=== PATIENT | female | born 1940 | race Caucasian/White ===

== ENCOUNTER → 2016-03-13 | Outpatient (CLI) | payer MEDICARE | LOC: YCHH 09:56 | PROVIDERS: ATTEND Family Medicine | DX: D52.9 Folate deficiency anemia, unspecified (principal); I50.9 Heart failure, unspecified; D64.9 Anemia, unspecified; E11.9 Type 2 diabetes mellitus without complications; E61.1 Iron deficiency; R79.89 Other specified abnormal findings of blood chemistry; M10.9 Gout, unspecified ==

== ENCOUNTER → 2016-09-12 | Outpatient (CLI) | payer MEDICARE | END | disposition home or self-care (01) | LOC: GMAM 17:14 | PROVIDERS: ATTEND Family Medicine | DX: R94.6 Abnormal results of thyroid function studies (principal) ==

== ENCOUNTER → 2016-09-16 | Outpatient (CLI) | payer MEDICARE ==
--- NOTE | 2016-09-16 15:06 | US ---
EXAM DESCRIPTION: Thyroid CLINICAL HISTORY: 75 years Female, ABNORMAL THYROID FINDINGS COMPARISON: None. FINDINGS: The thyroid is symmetric in appearance and in the upper range of normal for size with the right lobe measuring 5.2 x 1.6 x 2.3 cm and the left lobe measuring 5.2 x 1.5 x 1.8 cm. The isthmus is 4 mm in thickness. Multiple small nodules up to approximately 1 cm are present bilaterally. On the right, in the mid right lobe medially is a hypoechoic 9 x 9 x 8 mm solid nodule that is homogeneous. A septated almost completely six cystic lesion posteriorly in the mid right lobe measuring 10 x 7 x 8 mm is also present. A third complex predominantly solid hypoechoic 7 x 7 x 9 mm nodule in the mid right lobe is also identified. On the left, in the lower pole medially is a wider than tall hypoechoic slightly heterogeneous 8 x 7 x 4 mm nodule. A hypoechoic debris-filled cyst or solid nodule measuring 10 x 7 x 7 mm is also present in the lower pole left lobe of the thyroid. A small 6 mm hypoechoic nodule in the adjacent area of the lower pole is also present. Numerous tiny less than 5 mm nodules are noted elsewhere in the left lobe. IMPRESSION: Multinodular thyroid gland with centimeter and subcentimeter mixed solid and cystic nodules multiple in each lobe. One year follow-up examination to reconfirm stability is recommended. Electronically signed by: Adrien Zheng MD 09/16/2016 3:04 PM CDT
== END | disposition home or self-care (01) ==
LOC: US 09:19
PROVIDERS: ATTEND Family Medicine
DX: R94.6 Abnormal results of thyroid function studies (principal)

== ENCOUNTER 2016-12-16 08:57 | Emergency (ER) | payer MEDICARE ==
[2016-12-16] MEDS ORDERED: NITROGLYCERIN 0.4 MG 25 EA TAB SL ONE (09:06)
[2016-12-16] MEDS: NITROGLYCERIN 0.4 MG 25 EA TAB SL ONE ×2 (09:08→09:13)
[2016-12-16] MEDS ORDERED: LIDOCAINE VIS-MYLANTA 30 ML UD PO ONE (09:18)
[2016-12-16] MEDS ORDERED: MORPHINE SULFATE INJ 10 MG/ML VIAL IV ONE (09:18)
--- NOTE | 2016-12-16 09:33 | RAD ---
EXAM DESCRIPTION: Chest,1 View CLINICAL HISTORY: 4 hours chest pain COMPARISON: December 22, 2015 IMPRESSION: Single AP portable upright view of the chest shows enlargement of the cardiac silhouette without pulmonary vascular congestion. There is some enlargement of the central main pulmonary arteries that could indicate chronic pulmonary artery hypertension. Mild calcifications of the thoracic aortic arch are again seen. Lungs are normally aerated and clear. No obvious pleural effusion or pneumothorax is seen. Electronically signed by: Román Bueno MD 12/16/2016 9:32 AM OB/GYN DOCTOR
[2016-12-16 09:45] VITALS: O2SAT 98
[2016-12-16] MEDS ORDERED: SODIUM CHLORIDE 0.9% 1000ML 500 ML IVS ONE (09:57)
[2016-12-16] MEDS ORDERED: SODIUM CHLORIDE 0.9% 500ML 500 ML ONE (10:38)
[2016-12-16] MEDS ORDERED: SODIUM CHLORIDE 0.9% 500ML 500 ML IVS PRN (10:39)
[2016-12-16] MEDS ORDERED: CLOPIDOGREL 75 MG TAB PO ONE (11:02)
[2016-12-16] MEDS ORDERED: NITROGLYCERIN 2% 1 GM UD TOP ONE (11:03)
[2016-12-16] MEDS ORDERED: HEPARIN SODIUM (PORCINE) 5,000 U/ML VIAL IV ONE (11:03)
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
[2016-12-16] MEDS ORDERED: HEPARIN PREMIX 500 ML ONE (11:47)
[2016-12-16] MEDS ORDERED: HEPARIN PREMIX 25,000 UNITS in PREMIX BAG 1 BAG IVS SCH (12:00)
[2016-12-16 12:27] VITALS: BP 176/59; TEMP 97.9
== END 2016-12-16 12:31 | disposition short-term general hospital (02) ==
LOC: ER 08:57
DX: I20.0 Unstable angina (principal); I11.0 Hypertensive heart disease with heart failure; I50.9 Heart failure, unspecified; J44.9 Chronic obstructive pulmonary disease, unspecified; I25.2 Old myocardial infarction; Z98.61 Coronary angioplasty status; Z87.891 Personal history of nicotine dependence; Z79.899 Other long term (current) drug therapy; Z79.02 Long term (current) use of antithrombotics/antiplatelets
CPT/HCPCS: 36415; 36600; 71010; 80053; 81001; 82550; 82553; 82803; 82805; 83735; 83880; 84443; 84484; 85025; 85379; 85610; 85730; 93005; J1644; J2270; J7040

== ENCOUNTER → 2016-12-30 | Outpatient (CLI) | payer MEDICARE | END | disposition home or self-care (01) | LOC: GMAM 15:31 | PROVIDERS: ATTEND Family Medicine | DX: M10.9 Gout, unspecified (principal) ==

== ENCOUNTER → 2017-01-22 | Outpatient (CLI) | payer MEDICARE | END | disposition home or self-care (01) | LOC: GMAM 15:45 | PROVIDERS: ATTEND Family Medicine | DX: D64.9 Anemia, unspecified (principal) ==

== ENCOUNTER → 2017-03-06 | Outpatient (CLI) | payer MEDICARE | LOC: GMAM 14:31 | PROVIDERS: ATTEND Family Medicine | DX: R79.9 Abnormal finding of blood chemistry, unspecified (principal) ==

== ENCOUNTER → 2017-04-11 | Outpatient (CLI) | payer MEDICARE | LOC: LAB.O 13:31 | PROVIDERS: ATTEND Internal Medicine Hematology & Oncology | DX: D64.9 Anemia, unspecified (principal) ==

== ENCOUNTER 2017-04-15 07:04 | Inpatient (IN) | payer MEDICARE ==
[2017-04-15] MEDS ORDERED: NITROGLYCERIN 0.4 MG 25 EA TAB SL ONE (07:18)
[2017-04-15] MEDS ORDERED: ONDANSETRON INJ 4 MG/2 ML VIAL IV ONE (07:18)
[2017-04-15] MEDS ORDERED: SODIUM CHLORIDE 0.9% (FLUSH) 10 ML SYG IV PRN ×2 (07:18→12:26)
[2017-04-15] MEDS ORDERED: ASPIRIN TABLET 325 MG TAB PO ONE (07:18)
[2017-04-15] MEDS ORDERED: IPRATROPIUM/ALBUTEROL 3 ML VIAL NEB ONE (07:23)
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
--- NOTE | 2017-04-15 08:16 | RAD ---
Study: Single Frontal View of the Chest. Indication:CP, SOB, TEMP 101.8, H/O COPD Comparison: #[id number]. Impression: Cardiomegaly. Mild patchy opacities throughout bilateral lungs, which may reflect pulmonary edema or pneumonia. Follow-up to resolution recommended. No pleural effusion or pneumothorax. No acute osseous abnormality. Electronically signed by: Federico Montero MD 04/15/2017 8:15 AM ADMINISTRATIVE CLERK
[2017-04-15] MEDS ORDERED: ACETAMINOPHEN 325 MG TAB PO ONE (09:21)
[2017-04-15] MEDS ORDERED: AZITHROMYCIN IV 500 MG in SODIUM CHLORIDE 0.9% 250ML 250 ML IVPB ONE (10:07)
[2017-04-15] MEDS ORDERED: cefTRIAXone SODIUM 1 GM in SODIUM CHL 0.9% 50ML MIN-BAG+ 50 ML IVPB ONE (10:07)
[2017-04-15] MEDS ORDERED: cefTRIAXone SODIUM 1 GM VIAL ONE (10:19)
[2017-04-15] MEDS ORDERED: SODIUM CHL 0.9% 50ML MIN-BAG+ 50 ML IVPB ONE (10:19)
--- NOTE | 2017-04-15 10:36 | HP ---
SUPERVISING PHYSICIAN: Adrien Cotton M.D. CHIEF COMPLAINT: Congestion with some chest discomfort. HISTORY OF PRESENT ILLNESS: This is a 76 year-old female patient who complains of shortness of breath yesterday that was worse than normal. This morning she woke up and she was congested. She had some mid sternal chest pain with coughing, nausea and gagging. She actually did not vomit but her abdomen was diffusely tender. She spoke with her son who brought her into the Emergency Room. In the Emergency Room, sodium was 139 with potassium 4.8, chloride 109, carbon dioxide 20, BUN 66, creatinine 2.14, glucose 150, magnesium 1.7. Cardiac enzymes were negative. EKG was within normal limits. WBCs were 11.5, hemoglobin 11.5, hematocrit 4.9, platelets 150, neutrophils 79.4. PT and PTT were within normal limits. Urinalysis was within normal limits. Chest x-ray per radiology interpretation showed mild patchy opacities throughout the bilateral lungs which reflect pulmonary edema or pneumonia. She was given azithromycin and Rocephin in the Emergency Room as well as some Zofran. I was called for hospital admission. PAST MEDICAL HISTORY: 1. Acute renal failure stage IV with a baseline creatinine of 1.6 to 1.8. 2. Coronary artery disease. 3. Carotid artery stenosis. 4. Congestive heart failure with a diastolic dysfunction and an ejection fraction of 70% as per echo in December 2016. 5. Chronic obstructive pulmonary disease. 6. Dementia. 7. Gastroesophageal reflux disease. 8. Gout. 9. Hypertension. 10. Hyperlipidemia. 11. Obstructive sleep apnea. PAST SURGICAL HISTORY: 1. Tonsillectomy. 2. Left total knee replacement times 3. OUTPATIENT MEDICATIONS: Per the EMR and awaiting verification. ALLERGIES: BETADINE, RADIOGRAPHIC DYES AND IODINE. SOCIAL HISTORY: She is . She has 9 children. She lives in [place]. She has a past history of cigarette smoking but quit at age 30. She drinks alcohol on a social basis. She denies any ETOH use. REVIEW OF SYSTEMS: Positive for fatigue and low-grade fever. Negative for weight changes. HEENT: Positive for nasal drainage. Negative for ear pain, sore throat or vision changes. RESPIRATORY: Positive for coughing and shortness of breath. Negative for wheezing. CARDIAC: Positive for some midsternal chest pain. Negative for tachycardia or palpitations. GASTROINTESTINAL: Positive for nausea and gagging. Negative for vomiting, constipation or diarrhea. SKIN: Negative for lesions or rashes. NEUROLOGIC: Negative for headaches, dizziness or seizures. GENITOURINARY: Negative for dysuria, hematuria or nocturia. PHYSICAL EXAMINATION: VITAL SIGNS: Temperature up to 101.2, it is now 98.8. Pulse rate 65, blood pressure was low at 109/56, it is now 145/55. Respiratory rate was as high as 28, it is now 20. Her O2 sat was as low as 81% and is now 93% on 2 liters nasal cannula. GENERAL: This is a 76 year-old female patient lying in her hospital bed. She is in no acute distress. HEENT: Normocephalic and atraumatic. Pupils are equal and reactive. Oropharynx is clear. Oral mucous membranes are moist. NECK: Supple without mass. There is no jugular venous distention. RESPIRATORY: Bilateral rhonchi throughout. No crackles or wheezing noted. CHEST: There is equal rise and fall of the chest with inspiration and expiration. CARDIOVASCULAR: Regular rate and rhythm. GASTROINTESTINAL: Abdomen is soft, nondistended, non-tender. Bowel sounds are positive. EXTREMITIES: No cyanosis, clubbing or edema. NEUROLOGIC: She is awake, alert and oriented times three. LABORATORY: Labs and films are as per the History of Present Illness. ASSESSMENT: 1. Sepsis due to bilateral pneumonia with a temperature of 101.2, respiratory rate of 28 and bilateral pneumonia noted on chest x-ray. 2. Acute on chronic renal failure with a baseline creatinine of 1.6 to 1.8. It is now 2.14. 3. Electrolyte imbalance including hypomagnesemia. 4. Gastroesophageal reflux disease. 5. Hypertension. 6. Mild chronic obstructive pulmonary disease. 7. Elevated blood sugar. 8. Coronary artery disease. 9. Dementia. 10. Congestive heart failure with diastolic dysfunction and an ejection fraction of 70% per echocardiogram in December of 2016. PLAN: We will admit the patient to the hospital. I started her on the pneumonia protocol which continues her azithromycin and Rocephin. We will continue with good pulmonary hygiene. I have given her magnesium and checked her hemoglobin A1c in the morning. I have also put her on Accu-Cheks with sliding scale insulin. I will hold off on any steroids for now as there is no wheezing noted. She has also got breathing treatments and pulmonary hygiene. I gave her 1 liter of fluids. I have started on a PPI for ulcer prophylaxis as well as Lovenox for DVT prophylaxis. Monitor cultures as they become available. We will continue to monitor the patient closely and follow as needed. Dr. Cotton is the collaborating physician available for consultation. #[id number] MTDHarley
[2017-04-15] MEDS ORDERED: AZITHROMYCIN IV 500 MG VIAL IVPB ONE (10:50)
[2017-04-15] MEDS ORDERED: SODIUM CHLORIDE 0.9% 250ML 250 ML ONE (10:51)
[2017-04-15] MEDS ORDERED: ENOXAPARIN SODIUM 40 MG/0.4 ML SYG SUBCU SCH (13:00)
[2017-04-15] MEDS ORDERED: PANTOPRAZOLE SODIUM IV 40 MG VIAL IV SCH (13:00)
[2017-04-15] MEDS: IV SET AND CAP CHANGE INJ INJ SCH (13:13)
[2017-04-15] MEDS: LEVALBUTEROL NEBS 1.25 MG/3 ML VIAL INH SCH ×2 (16:30→23:32)
[2017-04-15] MEDS ORDERED: SODIUM CHLORIDE 0.45% 1000ML 1,000 ML IVS ONE (17:14)
[2017-04-15] MEDS ORDERED: MAGNESIUM SULFATE PREMIX 2GM 2 GM in PREMIX BAG 1 BAG IVPB ONE (17:14)
[2017-04-15] MEDS ORDERED: DEXTROSE 50% 25 GM/50 ML SYG IV PRN (17:15)
[2017-04-15] MEDS ORDERED: GLUCAGON INJ 1 MG VIAL SUBCU PRN (17:15)
[2017-04-15] MEDS ORDERED: MAGNESIUM SULFATE PREMIX 2GM 50 ML IVPB ONE (17:24)
[2017-04-15] MEDS ORDERED: PANTOPRAZOLE SODIUM TAB 40 MG PO ONE (20:20)
[2017-04-15] MEDS: guaiFENesin ER TAB 600 MG TAB PO SCH (20:35)
[2017-04-15] MEDS: SODIUM CHLORIDE 0.9% (FLUSH) 10 ML SYG IV SCH (20:35)
[2017-04-15] MEDS: INSULIN LISPRO 100 UNITS/ML PEN SUBCU SCH (21:10)
[2017-04-16] MEDS: PANTOPRAZOLE SODIUM TAB 40 MG PO SCH (06:00)
[2017-04-16] MEDS: INSULIN LISPRO 100 UNITS/ML PEN SUBCU SCH ×4 (07:15→21:04)
--- NOTE | 2017-04-16 07:39 | RAD ---
EXAM DESCRIPTION: Chest,2 Views CLINICAL HISTORY: Pneumonia COMPARISON: April 15, 2017 TECHNIQUE: PA/lateral FINDINGS: The appearance of the chest is slightly worse than previously seen with slightly increased mild cardiomegaly and more prominent central vascular markings suggesting an element of volume overload and failure. Dense consolidation or large pleural effusions are not apparent. Peripheral mass is not evident. Significant pleural fluid in the costophrenic angles on the lateral view not evident. IMPRESSION: Slight deterioration of the chest with cardiomegaly and mild central vascular congestion. Electronically signed by: Adrien Zheng MD 04/16/2017 7:38 AM [facility]
[2017-04-16] MEDS ORDERED: SODIUM CHL 0.9% 50ML MIN-BAG+ 50 ML IVPB ONE (07:45)
[2017-04-16] MEDS ORDERED: cefTRIAXone SODIUM 1 GM VIAL ONE (07:46)
[2017-04-16] MEDS: ENOXAPARIN SODIUM 40 MG/0.4 ML SYG SUBCU SCH (08:09)
[2017-04-16] MEDS: guaiFENesin ER TAB 600 MG TAB PO SCH ×2 (08:09→21:02)
[2017-04-16] MEDS: cefTRIAXone SODIUM 1 GM in SODIUM CHL 0.9% 50ML MIN-BAG+ 50 ML IVPB SCH (08:11)
[2017-04-16] MEDS: SODIUM CHLORIDE 0.9% (FLUSH) 10 ML SYG IV SCH ×2 (08:13→21:02)
[2017-04-16] MEDS: LEVALBUTEROL NEBS 1.25 MG/3 ML VIAL INH SCH ×3 (08:50→23:35)
[2017-04-16] MEDS ORDERED: SODIUM CHLORIDE 0.9% 250ML 250 ML ONE (09:54)
[2017-04-16] MEDS ORDERED: AZITHROMYCIN IV 500 MG VIAL IVPB ONE (09:55)
[2017-04-16] MEDS: AZITHROMYCIN IV 500 MG in SODIUM CHLORIDE 0.9% 250ML 250 ML IVPB SCH (09:56)
[2017-04-16] MEDS ORDERED: FUROSEMIDE INJ 40 MG/4 ML VIAL IV ONE (15:00)
[2017-04-16] MEDS ORDERED: METOPROLOL SUCCINATE XL 50 MG TAB ONE (15:07)
[2017-04-16] MEDS: CLOPIDOGREL 75 MG TAB PO SCH (15:12)
[2017-04-16] MEDS: METOPROLOL SUCCINATE XL 50 MG TAB PO SCH (15:15)
[2017-04-16] MEDS: OLMESARTAN MEDOXOMIL 40 MG PO SCH (15:40)
[2017-04-16] MEDS: LEVALBUTEROL NEBS 1.25 MG/3 ML VIAL INH PRN (20:55)
[2017-04-16] MEDS: LUBIPROSTONE 24 MCG CAP PO SCH (21:01)
[2017-04-16] MEDS: DONEPEZIL HCL 5 MG TAB PO SCH (21:02)
[2017-04-16] MEDS: traMADol HCL 50 MG TAB PO SCH (21:03)
[2017-04-16] MEDS: ALLOPURINOL 300 MG TAB PO SCH (21:03)
--- NOTE | 2017-04-16 21:39 | PN ---
DATE: 04/16/17 SUPERVISING PHYSICIAN: Adrien Cotton M.D. SUBJECTIVE: The patient is lying in her hospital bed. She is very cold. Says she feels worse today than she did yesterday. Feels very weak. She complains of shortness of breath with exertion but denies any chest pain, nausea, vomiting or diarrhea. OBJECTIVE: VITAL SIGNS: T max 24 hours is 99.5, pulse rate 75, blood pressure 159/47, respiratory rate 20, O2 sat is 90% on 2 liters nasal cannula. RESPIRATORY: Scattered rhonchi throughout. Somewhat diminished at the bases. There is no expiratory wheezing or crackles noted. CARDIAC: Regular rate and rhythm. GASTROINTESTINAL: Abdomen is soft, nondistended, non-tender. Bowel sounds are positive. EXTREMITIES: No cyanosis, clubbing or edema. NEUROLOGIC: She is awake, alert and oriented times three. LABORATORY: WBCs have normalized to 7.2 with hemoglobin that has dropped 2 grams from 11.5 yesterday to 9.5 today. Hematocrit is 29, platelets 125. Blood sugars have run between 112 and 139. Sodium 139, potassium 5.0, chloride 112, carbon dioxide 21, BUN 71, creatinine 2.53. Hemoglobin A1c is 4.8. Preliminary blood cultures show no growth after 24 hours. RADIOLOGY: Chest x-ray shows slight deterioration of the chest with cardiomegaly and mild central vascular congestion. All other labs and films have been reviewed via the EMR. ASSESSMENT: 1. Sepsis due to bilateral pneumonia with a temperature of 101.2, respiratory rate of 28 and bilateral pneumonia noted on chest x-ray. 2. Acute on chronic renal failure with a baseline creatinine of 1.6 to 1.8. It has slightly worsened overnight. 3. Anemia with a drop in hemoglobin of 2 grams overnight. Her anemia may be due to chronic kidney disease. 4. Electrolyte imbalance. 5. Gastroesophageal reflux disease. 6. Hypertension. 7. Mild chronic obstructive pulmonary disease. 8. Coronary artery disease. 9. Dementia. 10. Congestive heart failure with diastolic dysfunction and an ejection fraction of 70% per echocardiogram in December of 2016. PLAN: We will continue present supportive care. Will repeat her labs in the morning, especially to recheck her H&H. I will also guaiac her stools. Her home medications have been restarted and I have given her an extra dose of Lasix today. I will also obtain an ambulation study in the next day or 2 once she becomes somewhat stronger as she may need some oxygen. She is to continue with her pulmonary hygiene. We will continue to monitor her closely and follow as needed. Dr. Cotton is the collaborating physician available for consultation. [facility][id number] [facility]
[2017-04-17] MEDS: PANTOPRAZOLE SODIUM TAB 40 MG PO SCH (06:36)
[2017-04-17] MEDS: INSULIN LISPRO 100 UNITS/ML PEN SUBCU SCH ×4 (07:02→21:09)
[2017-04-17] MEDS ORDERED: SODIUM CHL 0.9% 50ML MIN-BAG+ 50 ML IVPB ONE (07:21)
[2017-04-17] MEDS ORDERED: cefTRIAXone SODIUM 1 GM VIAL ONE (07:22)
[2017-04-17] MEDS: LEVALBUTEROL NEBS 1.25 MG/3 ML VIAL INH SCH ×3 (07:33→23:35)
[2017-04-17] MEDS: ENOXAPARIN SODIUM 40 MG/0.4 ML SYG SUBCU SCH (08:36)
[2017-04-17] MEDS: cefTRIAXone SODIUM 1 GM in SODIUM CHL 0.9% 50ML MIN-BAG+ 50 ML IVPB SCH (08:36)
[2017-04-17] MEDS: traMADol HCL 50 MG TAB PO SCH ×2 (08:37→20:34)
[2017-04-17] MEDS: SODIUM CHLORIDE 0.9% (FLUSH) 10 ML SYG IV SCH ×2 (08:37→20:34)
[2017-04-17] MEDS: CLOPIDOGREL 75 MG TAB PO SCH (08:38)
[2017-04-17] MEDS: METOPROLOL SUCCINATE XL 50 MG TAB PO SCH (08:38)
[2017-04-17] MEDS: amLODIPine BESYLATE 5 MG TAB PO SCH (08:38)
[2017-04-17] MEDS: LUBIPROSTONE 24 MCG CAP PO SCH ×2 (08:38→20:34)
[2017-04-17] MEDS: guaiFENesin ER TAB 600 MG TAB PO SCH ×2 (08:38→20:33)
[2017-04-17] MEDS: FUROSEMIDE 40 MG TAB PO SCH (08:38)
[2017-04-17] MEDS: CALCITRIOL 0.25 MCG CAP PO SCH (08:38)
[2017-04-17] MEDS: ATORVASTATIN 10 MG TAB PO SCH (08:38)
[2017-04-17] MEDS: OLMESARTAN MEDOXOMIL 40 MG PO SCH (08:39)
[2017-04-17] MEDS ORDERED: AZITHROMYCIN IV 500 MG VIAL IVPB ONE (09:49)
[2017-04-17] MEDS ORDERED: SODIUM CHLORIDE 0.9% 250ML 250 ML ONE (09:49)
[2017-04-17] MEDS: AZITHROMYCIN IV 500 MG in SODIUM CHLORIDE 0.9% 250ML 250 ML IVPB SCH (09:53)
[2017-04-17] MEDS ORDERED: cloNIDine HCL 0.1 MG TAB PO ONE (10:07)
[2017-04-17] MEDS ORDERED: cloNIDine HCL 0.1 MG TAB ONE (10:11)
--- NOTE | 2017-04-17 13:21 | RAD ---
EXAM DESCRIPTION: Chest,2 Views CLINICAL HISTORY: Shortness of breath, pneumonia COMPARISON: Chest radiograph dated April 16, 2017 FINDINGS: Frontal and lateral views of the chest. Calcific atherosclerosis of the aortic arch. Cardiac silhouette shows cardiomegaly with mild central pulmonary vascular congestion. Minimal opacities in the bilateral lung bases most likely represent atelectasis. Underlying infiltrate cannot be entirely excluded. No significant pleural effusion. No pneumothorax. IMPRESSION: 1. Cardiomegaly with mild central pulmonary vascular congestion. 2. Opacity in the bilateral lung bases, most likely representing subsegmental atelectasis. Underlying infiltrate cannot be excluded, although felt less likely. Please correlate clinically. Electronically signed by: Victor Manuel Perez MD 04/17/2017 1:20 PM [facility]
[2017-04-17] MEDS ORDERED: methylPREDNISolone SODIUM SUC 125 MG/2 ML VIAL IV ONE (13:38)
--- NOTE | 2017-04-17 14:32 | PN ---
SUPERVISING PHYSICIAN: Adrien Cotton MD DATE: 04/17/17 SUBJECTIVE: The patient is sitting up in her hospital bed. She has just had an extremely large bowel movement and feels very weak. She continues to have shortness of breath, but she is improved since yesterday. No complaints of chest pain, nausea, vomiting. OBJECTIVE: VITAL SIGNS: T-max 24 hours 99.9. Heart rate 82. Blood pressure earlier today was 210/41. She received one dose of clonidine 0.1 for 1 dose and it is now 183/60. Respiratory rate 20. O2 saturation 92% on 3 liters nasal cannula. RESPIRATORY: Bilateral rhonchi throughout with diminished air sounds at the bases. She does have some expiratory wheezing in the right upper lung field. CARDIAC: Regular rate and rhythm. GASTROINTESTINAL: Abdomen is soft, nondistended, nontender. NEUROLOGIC: Awake, alert and oriented times three. LABORATORY: Sodium 139, potassium 4.7, chloride 109, carbon dioxide 23, BUN 63 , creatinine 2.13. Blood sugars have been between 113 and 139. WBCs are normalized at 7.3 with hemoglobin 9.6 and hematocrit 29.3. Platelet count 132. Preliminary blood cultures show no growth after 48 hours. Chest x-ray shows cardiomegaly with mild central pulmonary vascular congestion, opacity in the bilateral lung bases most likely representing subsegmental atelectasis. Underlying infiltrate cannot be excluded although fare less likely. Please correlate clinically. All other labs and films have been reviewed via the EMR. ASSESSMENT: 1. Sepsis due to bilateral pneumonia with a temperature of 101.2, respiratory rate of 28 and bilateral pneumonia noted on chest x-ray on admission. 2. Acute on chronic renal failure with a baseline creatinine of 1.6 to 1.8. 3. Anemia with a drop in hemoglobin of 2 grams from admission. Her hemoglobin and hematocrit remained stable since yesterday. 4. Electrolyte imbalance, improved. 5. Gastroesophageal reflux disease. 6. Hypertension. 7. Mild chronic obstructive pulmonary disease. 8. Coronary artery disease. 9. Dementia. 10. Congestive heart failure with diastolic dysfunction and an ejection fraction of 70% per echocardiogram in December of 2016. PLAN: We will continue present supportive care. I will monitor her hemoglobin and hematocrit as well as her electrolytes in the morning. We will hold on an x -ray for now. Due to her wheezing and her poor response clinically, I am going to add some steroids and taper those down overnight. I have ordered an ambulation study to see if she needs to have oxygen at home. All of her home medications have been resumed so hopefully there will be no further problems with elevated blood pressure. We will continue to encourage good pulmonary hygiene. We will continue to monitor the patient closely and follow as needed. Dr. Cotton is the collaborating physician and available for consultation. [facility][id number] [facility]
[2017-04-17] MEDS: ALLOPURINOL 300 MG TAB PO SCH (20:33)
[2017-04-17] MEDS: DONEPEZIL HCL 5 MG TAB PO SCH (20:34)
[2017-04-17] MEDS: methylPREDNISolone SODIUM SUC 125 MG/2 ML VIAL IV SCH (22:17)
[2017-04-18] MEDS: PANTOPRAZOLE SODIUM TAB 40 MG PO SCH (06:01)
[2017-04-18] MEDS: methylPREDNISolone SODIUM SUC 125 MG/2 ML VIAL IV SCH (06:02)
[2017-04-18] MEDS ORDERED: SODIUM CHL 0.9% 50ML MIN-BAG+ 50 ML IVPB ONE (07:35)
[2017-04-18] MEDS ORDERED: cefTRIAXone SODIUM 1 GM VIAL ONE (07:37)
[2017-04-18] MEDS: INSULIN LISPRO 100 UNITS/ML PEN SUBCU SCH ×4 (07:40→21:00)
[2017-04-18] MEDS: LEVALBUTEROL NEBS 1.25 MG/3 ML VIAL INH SCH ×2 (08:40→16:45)
[2017-04-18] MEDS: OLMESARTAN MEDOXOMIL 40 MG PO SCH (08:46)
[2017-04-18] MEDS: CALCITRIOL 0.25 MCG CAP PO SCH (08:48)
[2017-04-18] MEDS: amLODIPine BESYLATE 5 MG TAB PO SCH (08:49)
[2017-04-18] MEDS: traMADol HCL 50 MG TAB PO SCH ×2 (08:49→20:38)
[2017-04-18] MEDS: FUROSEMIDE 40 MG TAB PO SCH (08:50)
[2017-04-18] MEDS: LUBIPROSTONE 24 MCG CAP PO SCH ×2 (08:50→20:39)
[2017-04-18] MEDS: guaiFENesin ER TAB 600 MG TAB PO SCH ×2 (08:51→20:39)
[2017-04-18] MEDS: AZITHROMYCIN 250 MG TAB PO SCH (08:51)
[2017-04-18] MEDS: CLOPIDOGREL 75 MG TAB PO SCH (08:51)
[2017-04-18] MEDS: METOPROLOL SUCCINATE XL 50 MG TAB PO SCH (08:51)
[2017-04-18] MEDS: ENOXAPARIN SODIUM 40 MG/0.4 ML SYG SUBCU SCH (08:52)
[2017-04-18] MEDS: cefTRIAXone SODIUM 1 GM in SODIUM CHL 0.9% 50ML MIN-BAG+ 50 ML IVPB SCH (08:52)
[2017-04-18] MEDS: SODIUM CHLORIDE 0.9% (FLUSH) 10 ML SYG IV SCH ×2 (08:53→20:38)
[2017-04-18] MEDS: ATORVASTATIN 10 MG TAB PO SCH (09:00)
--- NOTE | 2017-04-18 14:18 | PN ---
SUPERVISING PHYSICIAN: Adrien Cotton MD DATE: 04/18/17 SUBJECTIVE: The patient is lying in bed. She complains of some bilateral ear pain, but otherwise she feels much improved since yesterday. She had a very, very large bowel movement and would like to hold her Amitiza for now. She has no complaints of shortness of breath, nausea, vomiting, diarrhea. OBJECTIVE: VITAL SIGNS: Afebrile. Heart rate 83. Blood pressure 104/66. Respiratory rate 18. O2 saturation 96% on 3 liters nasal cannula. HEENT: There is a small amount of fluid behind the left tympanic membrane and her right tympanic membrane is pink but otherwise within normal limits. RESPIRATORY: A few scattered rhonchi in the apices, diminished at the bases. No wheezing noted. CARDIAC: Regular rate and rhythm. GASTROINTESTINAL: Abdomen is soft, nondistended, nontender. NEUROLOGIC: Awake, alert and oriented times three. LABORATORY: WBC 5.9, hemoglobin 9.4, hematocrit 28.1, platelet count 128. Blood sugar have run between 113 and 202. Sodium 135, potassium 5.3, chloride 108, carbon dioxide 19, BUN 71, creatinine 2.70. Calcium 9.7. All other labs and films have been reviewed via the EMR. ASSESSMENT: 1. Sepsis due to bilateral pneumonia with a temperature of 101.2, respiratory rate of 28 and bilateral pneumonia noted on chest x-ray on admission. 2. Acute on chronic renal failure with a baseline creatinine of 1.6 to 1.8. 3. Anemia with a drop in hemoglobin of 2 grams from admission. Her hemoglobin and hematocrit remained stable since for the last two days. 4. Electrolyte imbalance, mostly improved. She is slightly hyperkalemic today. 5. Gastroesophageal reflux disease. 6. Hypertension. 7. Mild chronic obstructive pulmonary disease. 8. Coronary artery disease. 9. Dementia. 10. Congestive heart failure with diastolic dysfunction and an ejection fraction of 70% per echocardiogram in December of 2016. PLAN: We will continue present supportive care. Her steroids have been tapered down to p.o. dosing. I will repeat her labs and chest x-ray in the morning. She will need a followup with Dr. Becerra due to her worsening renal function. She does have oxygen at home and she may even need a sleep study at some point. Otherwise, hopefully she can be discharged tomorrow. We will continue to monitor the patient closely and follow as needed. Dr. Cotton is the collaborating physician and available for consultation. #[id number] [facility]
[2017-04-18] MEDS: DONEPEZIL HCL 5 MG TAB PO SCH (20:38)
[2017-04-18] MEDS: ALLOPURINOL 300 MG TAB PO SCH (20:39)
[2017-04-18] MEDS: LEVALBUTEROL NEBS 1.25 MG/3 ML VIAL INH PRN (20:50)
[2017-04-19] MEDS: PANTOPRAZOLE SODIUM TAB 40 MG PO SCH (06:15)
--- NOTE | 2017-04-19 07:28 | RAD ---
Clinical History : pna , MAIN Exam : Portable AP view of the chest 04/19/2017 5:00 AM [employer] Comparisons : Portable AP view of the chest April 17, 2017 Findings : There is stable diffuse peribronchial thickening throughout the lungs bilaterally. There is patchy bibasilar airspace disease. The heart is stable in size. The mediastinal contours are normal in appearance. There are vascular calcifications along the aortic arch. The thoracic spine is age appropriate. The shoulders are unremarkable. Limited evaluation of the upper abdomen demonstrates no gross abnormalities. Impression: Stable peribronchial thickening with patchy bibasilar airspace disease. Electronically signed by: Prem Boston MD 04/19/2017 7:28 AM [employer]
[2017-04-19] MEDS: LEVALBUTEROL NEBS 1.25 MG/3 ML VIAL INH SCH ×3 (08:36→16:44)
[2017-04-19] MEDS ORDERED: SODIUM CHL 0.9% 50ML MIN-BAG+ 50 ML IVPB ONE (08:48)
[2017-04-19] MEDS ORDERED: cefTRIAXone SODIUM 1 GM VIAL ONE (08:50)
[2017-04-19] MEDS: INSULIN LISPRO 100 UNITS/ML PEN SUBCU SCH ×4 (09:15→21:15)
[2017-04-19] MEDS: LUBIPROSTONE 24 MCG CAP PO SCH ×2 (09:16→21:15)
[2017-04-19] MEDS: FUROSEMIDE 40 MG TAB PO SCH (09:17)
[2017-04-19] MEDS: ENOXAPARIN SODIUM 40 MG/0.4 ML SYG SUBCU SCH (09:17)
[2017-04-19] MEDS: ATORVASTATIN 10 MG TAB PO SCH (09:17)
[2017-04-19] MEDS: amLODIPine BESYLATE 5 MG TAB PO SCH (09:18)
[2017-04-19] MEDS: guaiFENesin ER TAB 600 MG TAB PO SCH ×2 (09:18→21:15)
[2017-04-19] MEDS: CALCITRIOL 0.25 MCG CAP PO SCH (09:19)
[2017-04-19] MEDS: CLOPIDOGREL 75 MG TAB PO SCH (09:19)
[2017-04-19] MEDS: OLMESARTAN MEDOXOMIL 40 MG PO SCH (09:19)
[2017-04-19] MEDS: cefTRIAXone SODIUM 1 GM in SODIUM CHL 0.9% 50ML MIN-BAG+ 50 ML IVPB SCH (09:20)
[2017-04-19] MEDS: METOPROLOL SUCCINATE XL 50 MG TAB PO SCH (09:21)
[2017-04-19] MEDS: SODIUM CHLORIDE 0.9% (FLUSH) 10 ML SYG IV SCH ×2 (09:21→21:15)
[2017-04-19] MEDS: traMADol HCL 50 MG TAB PO SCH ×2 (09:21→21:15)
[2017-04-19] MEDS: AZITHROMYCIN 250 MG TAB PO SCH (09:22)
[2017-04-19] MEDS: IV SET AND CAP CHANGE INJ INJ SCH (12:34)
--- NOTE | 2017-04-19 18:43 | PN ---
DATE: 04/19/17 SUBJECTIVE: The patient is sitting up in the bed and in many ways states she is feeling better than 2 days ago. Today is her fourth day in the hospital. She has been able to ambulate quite well. No dizziness or tendency to fall evident. Awaiting ambulation studies to determine the requirements for oxygen upon going home. She has completed a fourth day of parenteral antibiotic therapy by later tonight. OBJECTIVE: Afebrile, pulse 91, blood pressure 130/58, pulse oximetry 97% on 2 liters. LABORATORY: Hemoglobin has dropped to 9.1 from on admission at 11.5. Chemistry shows magnesium is 2.3, beta natriuretic peptide has gone up from 311 to 519, fasting glucose is 146. Blood cultures are negative. RADIOLOGY: Chest x-ray shows bibasilar airspace disease suggesting a pneumonia process. ASSESSMENT: 1. Bibasilar pneumonia with elevated temperature and septic symptoms noted on chest x-ray with cultures negative at this time treated with Rocephin and azithromycin parenterally. 2. Chronic renal failure with an acute exacerbation showing some improvement. 3. Chronic anemia persistent having required iron infusions in the past. 4. History of gastroesophageal reflux disease. 5. Hypertension. 6. Mild chronic obstructive pulmonary disease, stable. 7. Coronary artery disease. 8. History of mild dementia. 9. History of congestive heart failure with a diastolic dysfunction and an ejection fraction of 70% per echocardiogram of December of 2016. PLAN: Will continue with determining oxygen requirements before being able to go home. Await ambulation studies today. Continue treatment course with radiographic findings still persistent but showing some clinical improvement. Consider continued outpatient therapy in the morning as stable. #[id number] [facility]
[2017-04-19] MEDS: DONEPEZIL HCL 5 MG TAB PO SCH (21:15)
[2017-04-19] MEDS: ALLOPURINOL 300 MG TAB PO SCH (21:16)
[2017-04-20] MEDS: LEVALBUTEROL NEBS 1.25 MG/3 ML VIAL INH SCH ×3 (00:19→15:45)
[2017-04-20] MEDS: PANTOPRAZOLE SODIUM TAB 40 MG PO SCH (06:13)
[2017-04-20] MEDS: INSULIN LISPRO 100 UNITS/ML PEN SUBCU SCH ×3 (08:03→12:08)
[2017-04-20] MEDS ORDERED: SODIUM CHL 0.9% 50ML MIN-BAG+ 50 ML IVPB ONE (08:11)
[2017-04-20] MEDS ORDERED: cefTRIAXone SODIUM 1 GM VIAL ONE (08:13)
[2017-04-20] MEDS: METOPROLOL SUCCINATE XL 50 MG TAB PO SCH (08:39)
[2017-04-20] MEDS: CALCITRIOL 0.25 MCG CAP PO SCH (08:39)
[2017-04-20] MEDS: CLOPIDOGREL 75 MG TAB PO SCH (08:40)
[2017-04-20] MEDS: traMADol HCL 50 MG TAB PO SCH (08:40)
[2017-04-20] MEDS: ATORVASTATIN 10 MG TAB PO SCH (08:41)
[2017-04-20] MEDS: FUROSEMIDE 40 MG TAB PO SCH (08:41)
[2017-04-20] MEDS: guaiFENesin ER TAB 600 MG TAB PO SCH (08:42)
[2017-04-20] MEDS: LUBIPROSTONE 24 MCG CAP PO SCH (08:43)
[2017-04-20] MEDS: amLODIPine BESYLATE 5 MG TAB PO SCH (08:43)
[2017-04-20] MEDS: ENOXAPARIN SODIUM 40 MG/0.4 ML SYG SUBCU SCH (08:43)
[2017-04-20] MEDS: cefTRIAXone SODIUM 1 GM in SODIUM CHL 0.9% 50ML MIN-BAG+ 50 ML IVPB SCH (08:46)
[2017-04-20] MEDS: SODIUM CHLORIDE 0.9% (FLUSH) 10 ML SYG IV SCH (08:47)
[2017-04-20] MEDS: OLMESARTAN MEDOXOMIL 40 MG PO SCH (09:10)
[2017-04-20] MEDS: AZITHROMYCIN 250 MG TAB PO SCH (09:11)
[2017-04-20 12:00] VITALS: TEMP 97.7
[2017-04-20 15:27] VITALS: BP 149/69
[2017-04-20 18:45] VITALS: O2SAT 91
--- NOTE | 2017-04-21 10:44 | DS ---
DISCHARGE DIAGNOSIS: 1. Bibasilar pneumonia with elevated temperature and septic symptoms on admission with abnormal chest x-ray with cultures negative, treated with Rocephin and azithromycin parenterally, showing some clinical improvement. 2. Chronic renal failure with an acute exacerbation, failing to significantly improve at the time of discharge and requiring renal specialist input to assist with maintenance of renal functioning. 3. Chronic anemia, having required iron infusions in the past with a normocytic/ normochromic presentation, possibly indicative of chronic disease. 4. History of gastroesophageal reflux disease. 5. History of hypertension. 6. Chronic obstructive pulmonary disease, stable. 7. History of coronary artery disease. 8. History of mild dementia. 9. History of congestive heart failure with a diastolic dysfunction and an ejection fraction of 70% per echocardiogram of December of 2016 and with elevated BNP of 519. Elevated BNP may be related also to the elevated renal dysfunction. HISTORY OF PRESENT ILLNESS: This 76-year-old white female is admitted to the hospital from the Emergency Room because of significant elevated temperature, coughing, nausea, gagging with abdominal discomfort and marked shortness of breath, worse than usual. Chest x-ray did reveal some patchy opacification through bilateral lung bases reflecting pulmonary edema or pneumonia present. Blood cultures were obtained and she was started on azithromycin and Rocephin parenterally. The patient had a course of therapy until she was feeling a little bit better, but her renal function was significantly involved in a deteriorated state. Her renal function had deteriorated fairly significantly with elevated BUN and creatinine approximately 6 years ago and then it normalized to a more normal level. She had seen Dr. Becerra at the onset. She had not seen him for a number of years. Subsequently, though, she has had a fairly significant deterioration in her renal function in spite of it showing some slight improvement initially as fluid was given to assist her initial illness presentation. LABORATORY: White count initially was 11,500 with 79% neutrophils. It was down to 11,000 and 80% neutrophils at the time of discharge with hemoglobin stabilizing at 9.5 with a normocytic/normochromic presentation. INR 0.96. Chemistries on discharge showed potassium 4.8, CO2 had dropped to 19, BUN 98, creatinine 3.2, glucose 111 fasting, osmolality 307. Beta natriuretic peptide had gone up from 311 to 591 paralleling the renal dysfunction. Urinalysis was generally clean. Blood cultures were negative. Initial chest x-ray showed evidence of cardiomegaly with patchy opacities throughout the lung bases suggesting edema of the lungs versus pneumonia. At the time of discharge, the patient had changes on the chest x-ray suggesting stable peribronchial thickening with patchy bibasilar airspace disease described in the report. It had the appearance of pulmonary edema as well. HOSPITAL COURSE: The patient was treated with antibiotics and was carefully managed with fluid hydration. Significant renal dysfunction was evident. The patient was feeling much improved from the fever and the respiratory distress symptoms at the time of her discharge and she very much wished to have followup in the outpatient clinic with Dr. Cotton and with Dr. Becerra to have specialized followup. PLAN: The patient will be followed up by Dr. Cotton the first part of this week who will also assist in helping to get an appointment with Dr. Becerra at for this Friday afternoon. The patient is given a copy of some laboratory studies showing several years of her renal function and showing a significant decline. She needs close followup and management. Drink adequate fluids, yet avoid edema state. Breath deeply and stay active. She is to continue on Omnicef, but at a reduced dose because of the kidney dysfunction. Try some yogurt twice daily while on the antibiotics. Return if not improving. #[id number] [facility]
== END 2017-04-20 15:45 | disposition home or self-care (01) | DRG 871 ==
LOC: ER 07:04 → MS 10:35
PROVIDERS: ADMIT Nurse Practitioner Family; ATTEND Emergency Medicine
DX: A41.9 Sepsis, unspecified organism (principal); J18.9 Pneumonia, unspecified organism; N17.9 Acute kidney failure, unspecified; I13.0 Hypertensive heart and chronic kidney disease with heart failure and stage 1 through stage 4 chronic kidney disease, or unspecified chronic kidney disease; I50.32 Chronic diastolic (congestive) heart failure; J44.0 Chronic obstructive pulmonary disease with (acute) lower respiratory infection; N18.4 Chronic kidney disease, stage 4 (severe); E83.42 Hypomagnesemia; E87.5 Hyperkalemia; R73.9 Hyperglycemia, unspecified; N18.9 Chronic kidney disease, unspecified; D63.8 Anemia in other chronic diseases classified elsewhere; K21.9 Gastro-esophageal reflux disease without esophagitis; I25.10 Atherosclerotic heart disease of native coronary artery without angina pectoris; F03.90 Unspecified dementia, unspecified severity, without behavioral disturbance, psychotic disturbance, mood disturbance, and anxiety; I65.29 Occlusion and stenosis of unspecified carotid artery; M10.9 Gout, unspecified; E78.5 Hyperlipidemia, unspecified; D50.9 Iron deficiency anemia, unspecified; G47.33 Obstructive sleep apnea (adult) (pediatric); I25.2 Old myocardial infarction; Z96.652 Presence of left artificial knee joint; Z88.3 Allergy status to other anti-infective agents; Z91.041 Radiographic dye allergy status; Z87.891 Personal history of nicotine dependence; Z95.5 Presence of coronary angioplasty implant and graft; Z79.02 Long term (current) use of antithrombotics/antiplatelets

== ENCOUNTER → 2017-04-24 | Outpatient (CLI) | payer MEDICARE ==
--- NOTE | 2017-04-24 11:18 | CT ---
EXAM DESCRIPTION: Abdomen/Pelvis w/o Contrast CLINICAL HISTORY: 76 years, Female, CHRONIC KIDNEY DISEASE COMPARISON: None. TECHNIQUE: CT of the abdomen and pelvis is performed according to our non contrast protocol. FINDINGS: The lung bases are clear. Heart size is normal. Coronary calcification is present. Liver, spleen, and pancreas are unremarkable. Multiple calcified gallstones are seen in the dependent portion of gallbladder with no evidence of over distention or surrounding inflammation. The right kidney is unremarkable except for a cyst in the anterior lower pole 2.2 cm and prominent hypertrophied column of Randy seen in the midportion. The left kidney also contains small cysts but is otherwise unremarkable. No renal stones or hydronephrosis on either side. There is no lymphadenopathy, inflammation, or free fluid observed. In the pelvis, bladder and distal ureters are negative for stones. Uterus is not enlarged. High density in the left adnexal region may be related to previous tubal ligation. No inflammation is seen around the sigmoid colon although there are numerous diverticula. No ovarian cyst or mass. No free fluid in the pelvis. Calcified vessels are noted. In the right mid abdomen, appendix appears small with no surrounding inflammation. No inflammation around the cecum or terminal ileum. Bone window images reveal degenerative changes of the hips and SI joints and lower lumbar spine. Coronal and sagittal reformatted images confirm the findings. Compression of L3 appears old. Lumbar degenerative disc disease is seen with spinal stenosis. Retroflexed uterus is noted. Small accessory splenule is present. IMPRESSION: Gallstones without other changes to suggest acute cholecystitis. Renal lesions consistent with cysts. No acute pelvic process. This exam was performed according to our departmental dose-optimization program, which includes automated exposure control, adjustment of the mA and/or kV according to patient size and/or use of iterative reconstruction technique. Total DLP equals 1369.68 mGycm. Electronically signed by: Aston Machado MD 04/24/2017 11:17 AM CDT
== END ==
LOC: CT 08:14
PROVIDERS: ATTEND Internal Medicine Nephrology
DX: N18.4 Chronic kidney disease, stage 4 (severe) (principal); K80.80 Other cholelithiasis without obstruction

== ENCOUNTER 2017-07-01 08:44 | Inpatient (IN) | payer MEDICARE ==
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
[2017-07-01] MEDS ORDERED: SODIUM CHLORIDE 0.9% 500ML 500 ML IVS ONE (10:16)
[2017-07-01] MEDS ORDERED: CALCIUM GLUCONATE INJ 2 GM in SODIUM CHLORIDE 0.9% 100ML 100 ML IVPB ONE (10:16)
[2017-07-01] MEDS ORDERED: SODIUM BICARBONATE 10MEQ/10ML 10 MEQ/10 ML SYG IV ONE (10:16)
[2017-07-01] MEDS ORDERED: SOD POLYSTYRENE SULFONATE 15 GM/60 ML BTTL PO ONE (10:17)
[2017-07-01] MEDS ORDERED: CALCIUM GLUCONATE INJ 1 GM/10 ML VIAL ONE (10:33)
[2017-07-01] MEDS ORDERED: SODIUM CHLORIDE 0.9% 100ML 100 ML IVPB ONE (10:34)
--- NOTE | 2017-07-01 10:55 | CT ---
EXAM DESCRIPTION: Abdoment/Pelvis w/o Contrast: Computed Tomography. CLINICAL HISTORY: abdominal pain COMPARISON: CT scan of the abdomen 04/24/2017. TECHNIQUE: Spiral-axial scans 5.0 mm intervals through the abdomen and pelvis without oral or IV contrast. Coronal and sagittal 2.0 mm reconstructions. Total Exam DLP: 1343.67 mGy-cm. This exam was performed according to our departmental CT dose-optimization program which includes automated exposure control, adjustment of the mA and/or kV according to patient size and/or use of iterative reconstruction technique; to reduce radiation dose to as low as reasonably achievable (ALARA). FINDINGS: Lung bases and pleura: Negative. Coronary artery stents. Liver, stomach, spleen, and adrenal glands: Long axis of the right lobe of the liver 17.7 cm. Pancreas, Gallbladder, and Ducts: Radiodense object 1 cm diameter on the medial wall of the superior gallbladder near the neck. Stable since prior study. No fatty stranding around the gallbladder pancreas. Duct not dilated. Pancreas negative. Kidneys and Ureters: Bilateral cortical thinning and minimal pararenal stranding. Almost 2 cm cyst inferior right kidney anterior cortex. Negative ureters. Mesentery: No stranding, fascial thickening. No free air or ascites. Aorta: Marked atherosclerotic calcification mid and distal abdominal aorta including the ostia of major branch vessels. Also left gastric artery and splenic artery. Significant narrowing of the distal abdominal aorta prior to the bifurcation and extension and calcification in the common iliac arteries. Small Bowel: Normal caliber with minimal gas and fluid. Terminal Ileum/Cecum: Normal caliber. Normal caliber of the appendix containing gas. Normal density of the surrounding fat. Colon: Diverticula in the sigmoid with no complications. Stable. Pelvic Organs: Retroverted or retroflexed uterus is small. Ringlike calcification in the left ovary or lymph node. Question presence of the right ovary. No adnexal or cul-de-sac fluid or large pelvic mass. No changes since prior study. Spine and Bony Pelvis: Depression of the superior L3 endplate. Spondylosis with air density L3-4, L4-5, and L5-S1. Also included thoracic spine. Significant narrowing bilaterally L4-5 foramina. Bilateral hip joint arthrosis more right than left. Also air density in the bilateral SI joints and the articular sclerosis right joint. Stable since the prior study. Abdominal Wall/Back Soft Tissues: Fatty diastases at the umbilicus not containing bowel. No change. IMPRESSION: 1. No inflammatory process, free air, or abdominal mass. 2. Stable diverticulosis of the distal colon. Stable minimal hepatic enlargement with no focal lesions. Stable stones/gravel in the gallbladder. 3. Stable cyst right kidney. No change in retroflexed or retroverted uterus. Calcified left ovary. Question presents of right ovary. No free fluid or pelvic mass. 4. Stable depression of the superior L3 endplate with multiple levels of lumbar and thoracic spondylosis, advanced arthrosis in the bilateral hip joints. Electronically signed by: Good Boone MD 07/01/2017 10:53 AM CDT
--- NOTE | 2017-07-01 11:57 | HP ---
SUPERVISING PHYSICIAN: Chuy García MD CHIEF COMPLAINT: Abdominal pain. HISTORY OF PRESENT ILLNESS: This is a 76-year-old female who presented to the Emergency Room this morning for lower abdominal pain. She stated the pain had been going on for the last 7 days or so, dull in nature, almost suprapubic. There is no description of fever or chills. However, she did have a bowel movement today. No nausea, vomiting or diarrhea has been complained of either. In the Emergency Room, she was seen and had labs as well as films done. CT of the abdomen was essentially negative for any acute findings. It did show diverticulosis without acute diverticulitis. However, chemistry came back showing an elevation of BUN and creatinine of 58 and 1.93, respectively, along with a potassium of 6.1. This was above her baseline BUN and creatinine and obviously the potassium was too high. White cell count was normal. Hemoglobin 9.6 and she does have chronic anemia and has gotten iron infusions twice in the past. Her urinalysis was negative for nitrites. She did have 3 to 5 WBCs, but was clear. Due to the findings of there hyperkalemia with acute on chronic kidney disease, she has been referred for admission. In the Emergency Room, she was given Kayexalate, calcium gluconate and sodium bicarb. She has had bowel movements twice now due to the Kayexalate. PAST MEDICAL HISTORY: 1. Chronic obstructive pulmonary disease on coughing oxygen therapy. 2. Pneumonia in April 2017. 3. Chronic kidney disease with baseline creatinine of 1.6 to 1.8. 4. Coronary artery disease with stents in the past. 5. Carotid artery disease. 6. Diastolic heart failure with an ejection fraction of 70%. 7. Dementia. 8. Gastroesophageal reflux disease. 9. Gout. 10. Hypertension. 11. Hyperlipidemia. 12. Obstructive sleep apnea. PAST SURGICAL HISTORY: 1. Tonsillectomy. 2. Left total knee arthroplasty x3. 3. Percutaneous transluminal coronary angioplasty with stents in the past. OUTPATIENT MEDICATIONS: 1. Allopurinol 300 mg p.o. q.h.s. 2. Amlodipine 10 mg daily. 3. Aspirin 325 mg p.o. daily. 4. Atorvastatin 10 mg p.o. daily. 5. Calcitriol 0.25 mcg p.o. daily. 6. Plavix 75 mg p.o. daily. 7. Aricept 5 mg p.o. q.h.s. 8. Furosemide 20 mg p.o. daily. 9. Hydralazine 50 mg p.o. t.i.d. 10. Amitiza 25 mg p.o. b.i.d. 11. Metoprolol 50 mg p.o. daily. 12. Olmesartan 40 mg p.o. daily. 13. Tramadol 50 mg p.o. q.6h. p.r.n. for pain. 14. Anoro Ellipta 62.5-25 mcg inhaled daily. ALLERGIES: BETADINE, RADIOGRAPHIC DYES, IODINE. FAMILY HISTORY: Reviewed and noncontributory. SOCIAL HISTORY: She is . She has 9 children. She lives in [place]. She has a distant history of smoking, but quit at age 30. She drinks alcohol on remote occasions. REVIEW OF SYSTEMS: CONSTITUTIONAL: No fever or chills. No recent weight loss or weight gain. HEENT: No headaches, vision changes, ear pain, nasal congestion or throat pain. RESPIRATORY: No cough, hemoptysis or pleuritic chest pain. CARDIOVASCULAR: No chest pain, palpitations or peripheral edema. GASTROINTESTINAL: No nausea, vomiting, diarrhea, constipation. She did have the lower abdominal pain. GENITOURINARY: No dysuria, frequency or flank pain. HEMATOLOGIC: She does have chronic anemia, easy bruising, but no transfusion reaction. MUSCULOSKELETAL: No muscle cramps, joint pain or joint swelling. SKIN: No rashes, lesions or wounds. ENDOCRINE: No polydipsia, polyuria, polyphagia. No heat or cold intolerance. NEUROLOGIC: No confusion, syncope, paresthesias, seizures. PHYSICAL EXAMINATION: VITAL SIGNS: Blood pressure 191/66. Heart rate 57. Respiratory rate 20. Temperature 97.8. Oxygen saturation 93%. GENERAL: Ms. Jang is a 76-year-old male in no active distress currently. HEENT: Normocephalic, atraumatic. Pupils are equal and reactive. No nasal drainage. Throat with moist mucosa. NECK: Supple. Midline trachea. No jugular venous distention. CHEST: Symmetrical with equal rise and fall of the chest with inspiration and expiration. Lung sounds are a little bit diminished in the bases, but otherwise clear to auscultation bilaterally. CARDIOVASCULAR: Regular rate and rhythm. Normal S1, S2. ABDOMEN: Soft, obese. Positive bowel sounds. No active tenderness to palpation at this time. GENITOURINARY: Deferred. EXTREMITIES: Lower extremities with no peripheral edema. Capillary refill is less than 2 seconds. NEUROLOGIC: The patient is alert and oriented. Moves all extremities. Extraocular movements are intact. LABORATORY: Labs and films are as discussed in history of present illness. ASSESSMENT: 1. Acute on chronic kidney failure. 2. Hyperkalemia secondary to #1. 3. Abdominal pain, resolved. 4. Hypertension, uncontrolled. 5. Chronic anemia. 6. History of chronic obstructive pulmonary disease any worsening of symptoms an acute exacerbation. 7. History of diastolic heart failure without acute exacerbation. PLAN: At this point, she has been given sodium bicarb, calcium gluconate as well as Kayexalate for treatment of her hyperkalemia. Therefore, I will start continuous IV fluids for rehydration. We will hold any medications that may elevate her potassium at this time. Other than that, I will restart her home medications once they are verified in the computer. Morning lab work will be done to ensure that we have improvement in her BUN, creatinine as well as continued lower of her potassium levels. Given the fact that her abdominal pain has resolved with a normal CT of the abdomen, it is unclear what the cause of that was, but we will monitor for any kind of recurrence. We will start her on DVT and GI prophylaxis as well. [facility][id number] [facility]
[2017-07-01] MEDS ORDERED: SODIUM CHLORIDE 0.9% (FLUSH) 10 ML SYG IV PRN (12:46)
[2017-07-01] MEDS ORDERED: IV SET AND CAP CHANGE INJ INJ SCH (13:00)
[2017-07-01] MEDS ORDERED: ENOXAPARIN SODIUM 30 MG/0.3 ML SYG SUBCU SCH (13:00)
[2017-07-01] MEDS: SODIUM CHLORIDE 0.9% 1000ML 1,000 ML IVS PRN (14:23)
[2017-07-01] MEDS: ENOXAPARIN SODIUM 40 MG/0.4 ML SYG SUBCU SCH (14:29)
[2017-07-01] MEDS: ATORVASTATIN 10 MG TAB PO SCH (20:44)
[2017-07-01] MEDS: DONEPEZIL HCL 5 MG TAB PO SCH (20:44)
[2017-07-01] MEDS: traMADol HCL 50 MG TAB PO SCH (20:44)
[2017-07-01] MEDS: ALLOPURINOL 300 MG TAB PO SCH (20:44)
[2017-07-02] MEDS: SODIUM CHLORIDE 0.9% 1000ML 1,000 ML IVS PRN (00:24)
[2017-07-02] MEDS: NON-FORMULARY MEDICATION 1 EA MIS (Umeclidinium-Vilanterol [Anoro Ellipta 62.5-25 Mcg/Inh] IN SCH (07:47)
[2017-07-02] MEDS ORDERED: amLODIPine BESYLATE 5 MG TAB ONE (08:41)
[2017-07-02] MEDS: ASPIRIN TABLET 325 MG TAB PO SCH (09:05)
[2017-07-02] MEDS: traMADol HCL 50 MG TAB PO SCH ×2 (09:06→20:50)
[2017-07-02] MEDS: METOPROLOL SUCCINATE XL 50 MG TAB PO SCH (09:06)
[2017-07-02] MEDS: amLODIPine BESYLATE 5 MG TAB PO SCH (09:07)
[2017-07-02] MEDS: CALCITRIOL 0.25 MCG CAP PO SCH (09:07)
[2017-07-02] MEDS: ENOXAPARIN SODIUM 40 MG/0.4 ML SYG SUBCU SCH (09:07)
[2017-07-02] MEDS: CLOPIDOGREL 75 MG TAB PO SCH (09:07)
[2017-07-02] MEDS: OLMESARTAN MEDOXOMIL 40 MG PO SCH (09:08)
[2017-07-02] MEDS ORDERED: FUROSEMIDE INJ 20 MG/2 ML VIAL IV ONE (09:37)
[2017-07-02] MEDS ORDERED: DEXTROSE 5% 1000ML 1,000 ML IVS ONE ×2 (10:08→19:52)
[2017-07-02] MEDS ORDERED: SODIUM BICARBONATE VIAL 50 MEQ/50 ML VIAL ONE ×2 (10:09→19:52)
--- NOTE | 2017-07-02 10:16 | PN ---
SUPERVISING PHYSICIAN: Chuy García MD DATE: 07/02/17 SUBJECTIVE: The patient feels okay. She did get kind of warn out from the Kayexalate yesterday and she had multiple bowel movements. She said it stopped around midnight though. Other than that, she is not having any symptoms. OBJECTIVE: VITAL SIGNS: Blood pressure 194/64. Heart rate 65. Respiratory rate 18. Temperature 98.5. Oxygen saturation 92%. GENERAL: Ms. Jang is a 76-year-old female in no active distress. NEUROLOGIC: Alert and oriented. LUNGS: A little bit diminished in the bases, but otherwise clear to auscultation bilaterally. CARDIOVASCULAR: Regular rate and rhythm. Normal S1, S2. ABDOMEN: Soft, obese. Positive bowel sounds. GENITOURINARY: Deferred. EXTREMITIES: Lower extremities with no significant peripheral edema. Pulses 2+ . Capillary refill is less than 2 seconds. LABORATORY: White count 4.8, hemoglobin 9.6, hematocrit 29.7, platelet count 139. Sodium 140, potassium 5.9, chloride 110, CO2 25, BUN 47, creatinine 1.49, calcium 9.8. ASSESSMENT: 1. Acute on chronic kidney failure. 2. Hyperkalemia secondary to #1. 3. Abdominal pain, resolved. 4. Hypertension, uncontrolled. 5. Chronic anemia. 6. History of chronic obstructive pulmonary disease with no acute exacerbation. 7. History of diastolic heart failure without acute exacerbation. PLAN: The potassium is a little bit better, but still not within normal range. I am going to change her IV fluids to D5 with bicarb. I am going to give a small dose of diuretic as well. Kayexalate yesterday pretty much ran its course. I do not feel like anymore Kayexalate at this time will benefit her. In fact, it physically kind of wore her out getting up and down to the bathroom. We will recheck her labs tomorrow and ensure that we are having improvement. [facility][id number] [facility]
[2017-07-02] MEDS: SODIUM BICARBONATE VIAL 100 MEQ in DEXTROSE 5% 1000ML 1,000 ML IVS PRN ×2 (10:18→21:08)
[2017-07-02] MEDS: ALLOPURINOL 300 MG TAB PO SCH (20:50)
[2017-07-02] MEDS: ATORVASTATIN 10 MG TAB PO SCH (20:50)
[2017-07-02] MEDS: DONEPEZIL HCL 5 MG TAB PO SCH (20:51)
[2017-07-03] MEDS: NON-FORMULARY MEDICATION 1 EA MIS (Umeclidinium-Vilanterol [Anoro Ellipta 62.5-25 Mcg/Inh] IN SCH (08:23)
[2017-07-03] MEDS: amLODIPine BESYLATE 5 MG TAB PO SCH (09:46)
[2017-07-03] MEDS: CALCITRIOL 0.25 MCG CAP PO SCH (09:46)
[2017-07-03] MEDS: ASPIRIN TABLET 325 MG TAB PO SCH (09:46)
[2017-07-03] MEDS: METOPROLOL SUCCINATE XL 50 MG TAB PO SCH (09:46)
[2017-07-03] MEDS: CLOPIDOGREL 75 MG TAB PO SCH (09:46)
[2017-07-03] MEDS: OLMESARTAN MEDOXOMIL 40 MG PO SCH (09:46)
[2017-07-03] MEDS: traMADol HCL 50 MG TAB PO SCH (09:46)
[2017-07-03] MEDS: ENOXAPARIN SODIUM 40 MG/0.4 ML SYG SUBCU SCH (09:52)
[2017-07-03 10:02] VITALS: O2SAT 96
[2017-07-03 10:54] VITALS: BP 163/67; TEMP 97
--- NOTE | 2017-07-03 11:41 | DS ---
SUPERVISING PHYSICIAN: Chuy García MD ADMISSION DIAGNOSIS: 1. Acute on chronic kidney failure. 2. Hyperkalemia secondary to #1. 3. Abdominal pain, resolved. 4. Hypertension, uncontrolled. 5. Chronic anemia. 6. History of chronic obstructive pulmonary disease without an acute exacerbation. 7. History of diastolic heart failure without any acute exacerbation. DISCHARGE DIAGNOSIS: 1. Acute on chronic kidney failure. 2. Hyperkalemia secondary to #1. 3. Abdominal pain, resolved. 4. Hypertension, uncontrolled. 5. Chronic anemia. 6. History of chronic obstructive pulmonary disease without an acute exacerbation. 7. History of diastolic heart failure without any acute exacerbation. HOSPITAL COURSE: This is a 76-year-old female who presented to the Emergency Room this morning for lower abdominal pain. She stated the pain had been going on for the last 7 days or so, dull in nature, almost suprapubic. There is no description of fever or chills. However, she did have a bowel movement today. No nausea, vomiting or diarrhea has been complained of either. In the Emergency Room, she was seen and had labs as well as films done. CT of the abdomen was essentially negative for any acute findings. It did show diverticulosis without acute diverticulitis. However, chemistry came back showing an elevation of BUN and creatinine of 58 and 1.93, respectively, along with a potassium of 6.1. This was above her baseline BUN and creatinine and obviously the potassium was too high. White cell count was normal. Hemoglobin 9.6 and she does have chronic anemia and has gotten iron infusions twice in the past. Her urinalysis was negative for nitrites. She did have 3 to 5 WBCs, but was clear. Due to the findings of there hyperkalemia with acute on chronic kidney disease, she has been referred for admission. In the Emergency Room, she was given Kayexalate, calcium gluconate and sodium bicarb. She has had bowel movements twice now due to the Kayexalate. Throughout the admission, she was given additional medications to lower her potassium. On 07/02/17, she was started on D5W with bicarb IV fluids. She had an improvement in her renal function as well as her potassium went into normal range. A complete review of her home medications was done and it did not appear that any of them were contributing to a hyperkalemic state. Therefore, the hyperkalemia is likely due to her chronic kidney disease. Due to normalization of her potassium, she was discharged today in stable condition. She has been instructed to followup with her primary care physician, Dr. Cotton on 07/08/17 at 0900 in the morning. No new medications have been ordered for her. Activity as tolerate. Diet is unchanged. [facility][id number] [facility]
== END 2017-07-03 11:35 | disposition home or self-care (01) | DRG 641 ==
LOC: ER 08:44 → MS 11:55
PROVIDERS: ADMIT Nurse Practitioner; ATTEND Nurse Practitioner
DX: E87.5 Hyperkalemia (principal); N17.9 Acute kidney failure, unspecified; I13.0 Hypertensive heart and chronic kidney disease with heart failure and stage 1 through stage 4 chronic kidney disease, or unspecified chronic kidney disease; I50.32 Chronic diastolic (congestive) heart failure; N18.9 Chronic kidney disease, unspecified; D63.1 Anemia in chronic kidney disease; R10.9 Unspecified abdominal pain; J44.9 Chronic obstructive pulmonary disease, unspecified; I25.10 Atherosclerotic heart disease of native coronary artery without angina pectoris; F03.90 Unspecified dementia, unspecified severity, without behavioral disturbance, psychotic disturbance, mood disturbance, and anxiety; K21.9 Gastro-esophageal reflux disease without esophagitis; M10.9 Gout, unspecified; E78.5 Hyperlipidemia, unspecified; E66.9 Obesity, unspecified; G47.33 Obstructive sleep apnea (adult) (pediatric); Z96.652 Presence of left artificial knee joint; Z79.02 Long term (current) use of antithrombotics/antiplatelets; Z79.82 Long term (current) use of aspirin; Z79.899 Other long term (current) drug therapy; Z88.3 Allergy status to other anti-infective agents; Z91.041 Radiographic dye allergy status; Z87.891 Personal history of nicotine dependence; Z95.5 Presence of coronary angioplasty implant and graft; Z68.37 Body mass index [BMI] 37.0-37.9, adult

== ENCOUNTER → 2017-09-15 | Outpatient (CLI) | payer MEDICARE | LOC: GMAM 11:49 | PROVIDERS: ATTEND Family Medicine | DX: R94.6 Abnormal results of thyroid function studies (principal); M10.9 Gout, unspecified ==

== ENCOUNTER → 2017-10-30 | Outpatient (CLI) | payer MEDICARE | LOC: GMAM 16:33 | PROVIDERS: ATTEND Family Medicine | DX: D64.9 Anemia, unspecified (principal) ==

== ENCOUNTER 2017-11-19 05:48 | Day surgery (SDC) | payer MEDICARE ==
[2017-11-19] MEDS ORDERED: LACTATED RINGERS 1,000 ML ONE (06:12)
[2017-11-19] MEDS ORDERED: KETAMINE HCL 100 MG/ML VIAL ONE (07:22)
[2017-11-19] MEDS ORDERED: MIDAZOLAM INJ 2 MG/2 ML VIAL ONE (07:23)
--- NOTE | 2017-11-19 09:23 | OP ---
DATE OF PROCEDURE: 11/19/17 PREOPERATIVE DIAGNOSIS: 1. Iron deficiency anemia related to chronic blood loss. POSTOPERATIVE DIAGNOSIS: 1. Erosive gastritis. 2. Colonic polyp. 3. Colonic diverticulosis. PROCEDURE: 1. Esophagogastroduodenoscopy. 2. Colonoscopy. SURGEON: Shun Good MD ANESTHESIA: Monitored anesthesia care. ESTIMATED BLOOD LOSS: Less than 5 mL. COMPLICATIONS: None. PROCEDURE: The patient was placed in the left lateral decubitus position. After monitored anesthesia care and deep sedation was achieved, the Olympus standard upper endoscope was inserted through the oropharynx and into the proximal esophagus and advanced to the second portion of the duodenum under direct visualization. The endoscope was then progressively withdrawn and the duodenum, stomach and esophageal lumen were evaluated. Retroflexion was performed in the stomach. The endoscope was then withdrawn and we proceeded with the colonoscopy. The patient's stretcher was rotated 180 degrees. The Olympus adult colonoscope was inserted through the anus and into the rectum and advanced to the cecum under direct visualization without difficulty. The terminal ileum was intubated. The patient's bowel preparation was fair, Bledsoe Prep Score 1 in the right colon, 2 in the middle, 3 in the rectum and sigmoid. Total Bledsoe Prep Score 6. The endoscope was then progressively withdrawn and the total colonic lumen evaluated. Retroflexion was performed in the rectum. A digital rectal exam was performed prior to insertion of the colonoscope and was noted to be normal. The endoscope was then withdrawn and the procedure terminated. The patient tolerated the procedures well with no immediate complications. FINDINGS: Esophagogastroduodenoscopy: 1. Esophagus: The esophagus was unremarkable, the gastroesophageal junction was located at 42 cm from the incisors. 2. Stomach: Erosive gastritis characterized by numerous erosions, mucosal atrophy and erythema was seen throughout the body and antrum of the stomach. Mild oozing was noted from multiple erosions. No endoscopic therapy was required. Random gastric biopsies were taken to rule out H. pylori. 3. Duodenum: Mild erosive duodenitis was seen the duodenal bulb. The second portion of the duodenum was unremarkable. Colonoscopy: 1. One, 4-mm sessile polyp was seen in the transverse colon. This polyp was removed with a cold snare and retrieved for pathology. 2. Moderate to severe diverticulosis characterized by medium and large sized diverticula was seen in the sigmoid and descending colon. There was associated mild narrowing and spasm, requiring water immersion to advance the endoscope. The terminal ileum was normal. Retroflexion in the rectum demonstrated grade 2 non-bleeding internal hemorrhoids. IMPRESSION: 1. Erosive gastritis and duodenitis, random gastric biopsies taken. 2. Moderate to severe colonic diverticulosis in the sigmoid and descending colon. 3. Colonic polyp in the transverse colon, status post polypectomy. 4. Grade 2 non-bleeding internal hemorrhoids. RECOMMENDATIONS: 1. Okay to discharge home. 2. Resume prior diet. 3. Resume Plavix at previous dose today. 4. Await pathology results. 5. Recommend repeat colonoscopy in 3 to 5 years due to colonic polyp and inadequate bowel prep for colorectal cancer surveillance. 6. Followup in GI clinic with Dr. Good in 1 to 2 months. 7. Followup with Dr. Powell with hematology as previously scheduled. #[id number] [facility]
[2017-11-19] MEDS ORDERED: PROPOFOL 200 MG/20 ML VIAL IV ONE (10:00)
[2017-11-19] MEDS ORDERED: LABETALOL INJ 5 MG/ML VIAL IV ONE (10:00)
[2017-11-19] MEDS ORDERED: LIDOCAINE 1% 10 ML VIAL INJ ONE (10:00)
[2017-11-19 14:38] VITALS: BP 165/82; TEMP 97.4; O2SAT 96
== END 2017-11-19 10:00 | disposition home or self-care (01) ==
LOC: AMB 05:48
PROVIDERS: ATTEND Internal Medicine Gastroenterology
DX: D50.0 Iron deficiency anemia secondary to blood loss (chronic) (principal); D12.3 Benign neoplasm of transverse colon; K57.30 Diverticulosis of large intestine without perforation or abscess without bleeding; K64.1 Second degree hemorrhoids; K29.80 Duodenitis without bleeding; K29.50 Unspecified chronic gastritis without bleeding; I25.10 Atherosclerotic heart disease of native coronary artery without angina pectoris; E11.22 Type 2 diabetes mellitus with diabetic chronic kidney disease; I13.0 Hypertensive heart and chronic kidney disease with heart failure and stage 1 through stage 4 chronic kidney disease, or unspecified chronic kidney disease; I50.9 Heart failure, unspecified; N18.9 Chronic kidney disease, unspecified; E11.51 Type 2 diabetes mellitus with diabetic peripheral angiopathy without gangrene; K59.04 Chronic idiopathic constipation; E66.9 Obesity, unspecified; E78.5 Hyperlipidemia, unspecified; J44.9 Chronic obstructive pulmonary disease, unspecified; Z68.37 Body mass index [BMI] 37.0-37.9, adult; Z95.1 Presence of aortocoronary bypass graft; Z88.8 Allergy status to other drugs, medicaments and biological substances; Z79.02 Long term (current) use of antithrombotics/antiplatelets; Z79.82 Long term (current) use of aspirin
CPT/HCPCS: 00813; 43239; 45385; 88305; 88342; J2250; J3490; J7120

== ENCOUNTER → 2017-12-19 | Outpatient (CLI) | payer MEDICARE | LOC: GMAM 11:13 | PROVIDERS: ATTEND Family Medicine | DX: R94.6 Abnormal results of thyroid function studies (principal); M10.9 Gout, unspecified ==

== ENCOUNTER 2018-08-27 12:47 | Emergency (ER) | payer MEDICARE ==
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
--- NOTE | 2018-08-27 13:24 | RAD ---
EXAM DESCRIPTION: Chest,1 View CLINICAL HISTORY: AFIB FINDINGS/ IMPRESSION: Comparison 04/19/2017 Cardiomegaly. Vascular congestion. Minimal increased interstitial markings compatible with early edema. No alveolar consolidation or pleural effusion Electronically signed by: Adrien Haley MD 08/27/2018 1:22 PM CDT
[2018-08-27 15:31] VITALS: BP 145/94; TEMP 98.6; O2SAT 95
== END 2018-08-27 15:31 | disposition home or self-care (01) ==
LOC: ER 12:47
DX: I48.1 Persistent atrial fibrillation (principal); I25.10 Atherosclerotic heart disease of native coronary artery without angina pectoris; I11.0 Hypertensive heart disease with heart failure; I49.3 Ventricular premature depolarization; J44.9 Chronic obstructive pulmonary disease, unspecified; I25.2 Old myocardial infarction; I50.9 Heart failure, unspecified; Z95.5 Presence of coronary angioplasty implant and graft; Z87.891 Personal history of nicotine dependence; Z79.899 Other long term (current) drug therapy; Z79.82 Long term (current) use of aspirin; Z91.041 Radiographic dye allergy status; Z79.02 Long term (current) use of antithrombotics/antiplatelets

== ENCOUNTER → 2018-08-27 | Outpatient (CLI) | payer MEDICARE | LOC: GMAJS 15:08 | PROVIDERS: ATTEND Physician Assistant | DX: R00.0 Tachycardia, unspecified (principal) ==

== ENCOUNTER → 2018-09-01 | Outpatient (CLI) | payer MEDICARE | LOC: LAB.O 14:30 | PROVIDERS: ATTEND Internal Medicine Interventional Cardiology | DX: I48.91 Unspecified atrial fibrillation (principal) ==

== ENCOUNTER 2018-09-08 12:28 | Inpatient (IN) | payer MEDICARE ==
[2018-09-08] MEDS ORDERED: NITROGLYCERIN 0.4 MG 25 EA TAB SL ONE ×3 (12:39→13:18)
--- NOTE | 2018-09-08 13:07 | RAD ---
PROVIDED CLINICAL HISTORY/REASON FOR EXAM: shortness of breath Comparison: Most recent prior available Findings: Number of images: 1 Location: Frontal Chest Cardiomegaly. Pulmonary vascular congestion. No large pleural effusion. Increased bilateral interstitial and airspace opacities. No pneumothorax. No acute osseous abnormality. Soft tissues are unremarkable. Atherosclerotic plaque in the thoracic aorta. IMPRESSION: CHF/Volume overload. Electronically signed by: Gurinder Ferrell MD 09/08/2018 1:05 PM CDT
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
[2018-09-08] MEDS ORDERED: FUROSEMIDE INJ 40 MG/4 ML VIAL IV ONE (13:16)
[2018-09-08] MEDS ORDERED: CHLORHEXIDINE GLUCONATE 4 % 15 ML UD TOP ONE (13:34)
--- NOTE | 2018-09-08 15:33 | HP ---
SUPERVISING PHYSICIAN: Adrien Cotton M.D. CHIEF COMPLAINT: Shortness of breath. HISTORY OF PRESENT ILLNESS: This is a 77 year-old female who came into the Emergency Room at the direction of her home health nurse. She states that she had chest pain and shortness of breath for a few hours prior to her arrival, which would have been about 10:40 in the morning. She has had some pretty much constant chest discomfort for the past several months. It intermittently gets worse and improves on its own with no intervention. She does have a windshield technician who is Dr. Bobby. She states that she had an echocardiogram back last Friday and that some medications were changed. She also utilizes oxygen at home. Every once in a while when her pain starts up she puts oxygen on and the pain gets better. She does have a history of coronary artery disease with stent placement in the past. She also has atrial fibrillation and Dr. Bobby is addressing that one as well. In the E. R., she did have blood work done which shows normal white count. She also had an elevated BNP at 533. Potassium was 5.1, BUN 58, creatinine 2.04, troponin was negative times 2. Chest x-ray was consistent with congestive heart failure, therefore she was referred for admission for congestive heart failure exacerbation. At time of examination, the patient is alert and oriented, and does not have any complaints and she feels better after putting out approximately 1 liter of urine in the E. R. after getting diuretics. PAST MEDICAL HISTORY: 1. Atrial fibrillation. 2. Hypertension. 3. Coronary artery disease. 4. Chronic obstructive pulmonary disease. 5. Chronic kidney disease. 6. Carotid artery disease. 7. Diastolic heart failure. 8. Dementia. 9. Gastroesophageal reflux disease. 10. Hyperlipidemia. 11. Obstructive sleep apnea. 12. Gout. PAST SURGICAL HISTORY: 1. Tonsillectomy. 2. PTCA with stents in the past. 3. Left total knee arthroplasty times 3. CURRENT MEDICATIONS: Please see the electronic record once they are reconciled in the computer. ALLERGIES: BETADINE, RADIOGRAPHIC DYES AND IODINE. FAMILY HISTORY: Reviewed and noncontributory. SOCIAL HISTORY: She is . Has 9 children. Lives in [place]. Distant history of smoking but quit at age 30. Socially drinks. REVIEW OF SYSTEMS: CONSTITUTIONAL: No fever or chills. No recent weight loss or weight gain. HEENT: No headache, vision changes, ear pain, nasal congestion or throat pain. RESPIRATORY: Positive for shortness of breath. No cough, hemoptysis or pleuritic chest pain. CARDIOVASCULAR: Positive for palpitations and some chest discomfort, occasional peripheral edema. GASTROINTESTINAL: No nausea, vomiting, diarrhea, constipation or abdominal pain. GENITOURINARY: No history of dysuria, frequency or flank pain, but she states she has had some difficulty getting a lot of urine out. MUSCULOSKELETAL: She does have some various joint pains, but no acute joint swelling or muscle cramps. NEUROLOGIC: No confusion, syncope, paresthesias or seizures. ENDOCRINE: No polydipsia, polyuria or polyphagia. No heat or cold intolerance. SKIN: No rashes, lesions or wounds. PHYSICAL EXAMINATION: VITAL SIGNS: Blood pressure 148/88, heart rate 96, respiratory rate 16, temperature 98.7, oxygen saturation 93%. GENERAL: Ms. Jang is a 77 year-old female who is in no active distress currently. CHEST: Lungs have bibasilar rales but no active wheezing. CARDIOVASCULAR: The patient has an irregular rate and rhythm. Normal S1 and S2. Atrial fibrillation per the monitoring tech. ABDOMEN: Obese, soft. Positive bowel sounds. No tenderness to palpation. No organomegaly. GENITOURINARY: Exam is deferred. EXTREMITIES: Lower extremities with significant peripheral edema. Capillary refill is less than 2 seconds. 2+ pulses are noted. NEUROLOGIC: The patient is alert and oriented. LABORATORY: Labs and films are discussed in the History of Present Illness. ASSESSMENT: 1. Chest pain, rule out congestive heart failure exacerbation. 2. Chest pain, rule out acute coronary syndrome. 3. Acute on chronic kidney disease. 4. Hyperkalemia. 5. History of chronic obstructive pulmonary disease without an acute exacerbation. 6. Hypertension. 7. Hyperlipidemia. PLAN: At this time will admit the patient for diuresis. She has had 2 enzymes which were negative. I will repeat 1 more set tonight to ensure that there is not any elevation in the cardiac enzymes. Rate is fairly controlled on the monitor. I will resume her home medications as well. She has had symptomatic improvement with 1 dose of Lasix. Will use caution with getting too aggressive with the diuretics given her renal function. If she has any difficulties, will contact her windshield technician for further direction, however at this time seems to be pretty straight forward CHF exacerbation. DVT prophylaxis will be addressed by resuming her home anticoagulation. GI ulcer prophylaxis will be done utilizing a PPI. #[id number] [facility]
[2018-09-08] MEDS ORDERED: NITROGLYCERIN 0.4 MG 25 EA TAB SL PRN (16:50)
[2018-09-08] MEDS ORDERED: SODIUM CHLORIDE 0.9% (FLUSH) 10 ML SYG IV PRN (16:50)
[2018-09-08] MEDS ORDERED: LUBIPROSTONE 24 MCG CAP PO PRN (16:53)
[2018-09-08] MEDS ORDERED: IV SET AND CAP CHANGE INJ INJ SCH (17:00)
[2018-09-08] MEDS: ASPIRIN TABLET 325 MG TAB PO SCH (17:07)
[2018-09-08] MEDS: traMADol HCL 50 MG TAB PO SCH (20:54)
[2018-09-08] MEDS: ATORVASTATIN 10 MG TAB PO SCH (20:55)
[2018-09-08] MEDS: AMIODARONE HCL 200 MG TAB PO SCH (20:55)
[2018-09-08] MEDS: ALLOPURINOL 300 MG TAB PO SCH (20:55)
[2018-09-08] MEDS: DONEPEZIL HCL 5 MG TAB PO SCH (20:56)
[2018-09-08] MEDS: METOPROLOL SUCCINATE XL 50 MG TAB PO SCH (20:56)
[2018-09-08] MEDS: APIXABAN 2.5 MG TAB PO SCH (20:56)
[2018-09-09] MEDS: ASPIRIN TABLET 325 MG TAB PO SCH (08:06)
[2018-09-09] MEDS: AMIODARONE HCL 200 MG TAB PO SCH ×2 (08:06→20:14)
[2018-09-09] MEDS: APIXABAN 2.5 MG TAB PO SCH ×2 (08:06→20:14)
[2018-09-09] MEDS: traMADol HCL 50 MG TAB PO SCH ×2 (08:06→20:14)
[2018-09-09] MEDS: METOPROLOL SUCCINATE XL 50 MG TAB PO SCH ×2 (08:06→20:14)
[2018-09-09] MEDS ORDERED: FUROSEMIDE INJ 40 MG/4 ML VIAL IV SCH (09:00)
[2018-09-09] MEDS: OLMESARTAN MEDOXOMIL 40 MG PO SCH (09:25)
[2018-09-09] MEDS: [UNRECOGNIZED DRUG - OTHER] PO SCH (09:25)
[2018-09-09] MEDS: OLMESARTAN PO SCH (09:25)
[2018-09-09] MEDS: NON-FORMULARY MEDICATION 1 EA MIS (Umeclidinium-Vilanterol [Anoro Ellipta 62.5-25 Mcg/Inh] IN SCH (09:25)
[2018-09-09] MEDS: AMLODIPINE BESYLATE PO SCH (09:25)
--- NOTE | 2018-09-09 13:09 | PN ---
SUPERVISING PHYSICIAN: Adrien Cotton MD DATE: 09/09/18 SUBJECTIVE: The patient is lying in bed. She says she feels much better than yesterday. She can actually breathe. She denies chest pain, shortness of breath except with exertion, nausea or vomiting. OBJECTIVE: VITAL SIGNS: Temperature 98.5. Heart rate 82. Blood pressure 130/67. Respiratory rate 18. O2 saturation 95% on room air. I&Os show 24 hours with a negative 2 liters. RESPIRATORY: Slightly diminished at the bases with a few scattered crackles. CARDIAC: Regular rate, irregular rhythm. GASTROINTESTINAL: Abdomen is soft, nondistended, nontender. Bowel sounds are positive. EXTREMITIES: Trace edema to bilateral lower extremities. Pedal pulses palpable at +2. NEUROLOGIC: Awake, alert and oriented times three. LABORATORY: Electrolytes are basically within normal limits. Creatinine has improved to 1.09. Her baseline is approximately 1.9 to 2. Urine culture is pending. All other labs and films have been reviewed via the EMR. ASSESSMENT: 1. Chest pain, rule out congestive heart failure exacerbation. She is improved with diuretics and oxygen. 2. Chest pain, rule out acute coronary syndrome. 3. Acute on chronic kidney disease. 4. Hyperkalemia. 5. History of chronic obstructive pulmonary disease without an acute exacerbation. 6. Hypertension. 7. Hyperlipidemia. PLAN: We will continue present supportive care. I have discontinued her IV Lasix and have changed her to oral Lasix. I ordered lab and chest x-ray tomorrow. She also wanted something for sleep and I have ordered her p.r.n. melatonin. We discussed congestive heart failure and exacerbation at length. She said this is the first really bad exacerbation she has had and she understands to come into the hospital or to see her physician. We will continue to monitor the patient closely and follow as needed. #[id number] [facility]
[2018-09-09] MEDS ORDERED: FUROSEMIDE 40 MG TAB ONE (14:58)
[2018-09-09] MEDS ORDERED: FUROSEMIDE 40 MG TAB PO ONE (17:00)
[2018-09-09] MEDS: MELATONIN 3 MG TAB PO PRN (20:14)
[2018-09-09] MEDS: DONEPEZIL HCL 5 MG TAB PO SCH (20:14)
[2018-09-09] MEDS: ATORVASTATIN 10 MG TAB PO SCH (20:15)
[2018-09-09] MEDS: ALLOPURINOL 300 MG TAB PO SCH (20:15)
--- NOTE | 2018-09-10 07:04 | RAD ---
EXAM: XR Chest, 2 Views CLINICAL HISTORY: The patient is 77 years old and is Female; chf TECHNIQUE: Frontal and lateral views of the chest. COMPARISON: Chest radiograph from 09/08/2018 FINDINGS: LUNGS: Interval improvement in pulmonary vascular congestion. The lungs are clear. No consolidation. PLEURAL SPACE: Unremarkable. No pneumothorax. HEART: Stable mild enlargement of the cardiac silhouette. MEDIASTINUM: Unremarkable. BONES/JOINTS: The bones are unchanged. Degenerative changes noted in the spine. IMPRESSION: No acute findings visualized in the chest. Electronically signed by: Radha Moreira MD 09/10/2018 7:02 AM CDT
[2018-09-10] MEDS ORDERED: ONDANSETRON INJ 4 MG/2 ML VIAL IV PRN (07:06)
[2018-09-10] MEDS ORDERED: PROMETHAZINE HCL INJ 25 MG in SODIUM CHLORIDE 0.9% 50ML 50 ML IVPB PRN (07:07)
[2018-09-10] MEDS: METOPROLOL SUCCINATE XL 50 MG TAB PO SCH ×2 (09:47→20:38)
[2018-09-10] MEDS: traMADol HCL 50 MG TAB PO SCH ×2 (09:47→20:38)
[2018-09-10] MEDS: FUROSEMIDE 40 MG TAB PO SCH ×2 (09:47→16:59)
[2018-09-10] MEDS: AMIODARONE HCL 200 MG TAB PO SCH ×2 (09:47→20:38)
[2018-09-10] MEDS: APIXABAN 2.5 MG TAB PO SCH ×2 (09:48→20:38)
[2018-09-10] MEDS: AMLODIPINE BESYLATE PO SCH (09:48)
[2018-09-10] MEDS: OLMESARTAN MEDOXOMIL 40 MG PO SCH (09:48)
[2018-09-10] MEDS: ASPIRIN TABLET 325 MG TAB PO SCH (09:48)
[2018-09-10] MEDS: [UNRECOGNIZED DRUG - OTHER] PO SCH (09:48)
[2018-09-10] MEDS: OLMESARTAN PO SCH (09:48)
[2018-09-10] MEDS: NON-FORMULARY MEDICATION 1 EA MIS (Umeclidinium-Vilanterol [Anoro Ellipta 62.5-25 Mcg/Inh] IN SCH (09:48)
--- NOTE | 2018-09-10 11:30 | PN ---
SUPERVISING PHYSICIAN: Adrien Cotton MD DATE: 09/10/18 SUBJECTIVE: The patient is lying in bed. Earlier this morning, she had some nausea with vomiting. She has had a poor appetite since being in the hospital and she continues to be slightly nauseated, but no vomiting in the last several hours. She just "doesn't feel good today." No complaints of chest pain or shortness of breath. OBJECTIVE: VITAL SIGNS: Temperature 97.9. Heart rate 76. Blood pressure 122/67. Respiratory rate 18. O2 saturation 96% on 2 liters. RESPIRATORY: Essentially clear to auscultation bilaterally. She is diminished at the bases. CARDIAC: Regular rate and rhythm. GASTROINTESTINAL: Abdomen is soft, nondistended, nontender. Bowel sounds are positive. NEUROLOGIC: Awake, alert and oriented times three. LABORATORY: WBC 7.8, hemoglobin 10.7, hematocrit 33.3. Sodium 134, potassium 4.8, chloride 98, carbon dioxide 26. BUN 49, creatinine 2.06. Baseline creatinine is about 2. Urine culture is pending. Chest x-ray shows no acute findings visualized in the chest. All other labs and films have been reviewed via the EMR. ASSESSMENT: 1. Chest pain, rule out congestive heart failure exacerbation. She is improved with diuretics and oxygen. 2. Chest pain, rule out acute coronary syndrome. 3. Nausea and vomiting of unknown etiology, improved after antiemetics. 4. Acute on chronic kidney disease. 5. Hyperkalemia. 6. History of chronic obstructive pulmonary disease without an acute exacerbation. 7. Hypertension. 8. Hyperlipidemia. PLAN: We will continue present supportive care. I had initially planned to send her home today, but she has gotten some antiemetics for the nausea. We will watch her over the next few hours and if she improves, we may send her home with close followup with Dr. Cotton. Otherwise, she should be able to discharge tomorrow morning. I will hold on any lab for tomorrow. I will have her diet as a full liquid for lunch due to her nausea. If she tolerates that without any issues, we can advance her diet. If she does have another bout of nausea, we may need to give her some judicious fluids, but I do not want to overload her, so I will be very careful with those. We will continue to monitor the patient closely and follow as needed. #[id number] [facility]
[2018-09-10] MEDS: ATORVASTATIN 10 MG TAB PO SCH (20:38)
[2018-09-10] MEDS: ALLOPURINOL 300 MG TAB PO SCH (20:38)
[2018-09-10] MEDS: DONEPEZIL HCL 5 MG TAB PO SCH (20:38)
[2018-09-10] MEDS: MELATONIN 3 MG TAB PO PRN (20:42)
[2018-09-11] MEDS: METOPROLOL SUCCINATE XL 50 MG TAB PO SCH (09:03)
[2018-09-11] MEDS: traMADol HCL 50 MG TAB PO SCH (09:03)
[2018-09-11] MEDS: OLMESARTAN PO SCH (09:03)
[2018-09-11] MEDS: [UNRECOGNIZED DRUG - OTHER] PO SCH (09:03)
[2018-09-11] MEDS: AMLODIPINE BESYLATE PO SCH (09:03)
[2018-09-11] MEDS: AMIODARONE HCL 200 MG TAB PO SCH (09:03)
[2018-09-11] MEDS: APIXABAN 2.5 MG TAB PO SCH (09:03)
[2018-09-11] MEDS: ASPIRIN TABLET 325 MG TAB PO SCH (09:03)
[2018-09-11] MEDS: NON-FORMULARY MEDICATION 1 EA MIS (Umeclidinium-Vilanterol [Anoro Ellipta 62.5-25 Mcg/Inh] IN SCH (09:04)
[2018-09-11] MEDS: FUROSEMIDE 40 MG TAB PO SCH (09:04)
[2018-09-11] MEDS: OLMESARTAN MEDOXOMIL 40 MG PO SCH (09:04)
[2018-09-11 09:19] VITALS: O2SAT 96
[2018-09-11 13:36] VITALS: BP 135/78; TEMP 98
--- NOTE | 2018-09-13 13:30 | DS ---
SUPERVISING PHYSICIAN: Adrien Cotton MD ADMISSION DIAGNOSES: 1. Chest pain, rule out congestive heart failure exacerbation. 2. Chest pain, rule out acute coronary syndrome. 3. Acute on chronic kidney disease. 4. Hyperkalemia. 5. History of chronic obstructive pulmonary disease without an acute exacerbation. 6. Hypertension. 7. Hyperlipidemia. DISCHARGE DIAGNOSES: 1. Acute on chronic congestive heart failure with preserved ejection fraction showing signs of exacerbation . Improved with diuretics and oxygen.. 2. Chest pain with no signs of acute coronary syndrome. EKGs without any indication of changes in ischemia or acute injury pattern with patient being pain-free prior to discharge. 3. Nausea and vomiting likely due to oral medications, improved after antiemetics and fluids. 4. Acute on chronic kidney disease, showing to be at baseline levels. 5. Hyperkalemia. 6. History of chronic obstructive pulmonary disease without an acute exacerbation. 7. Hypertension. 8. Hyperlipidemia. REASON FOR HOSPITALIZATION: : This is a 77 year-old female who came into the Emergency Room at the direction of her home health nurse. She states that she had chest pain and shortness of breath for a few hours prior to her arrival, which would have been about 10:40 in the morning. She has had some pretty much constant chest discomfort for the past several months. It intermittently gets worse and improves on its own with no intervention. She does have a procurement representative who is Dr. Bobby. She states that she had an echocardiogram back last Friday and that some medications were changed. She also utilizes oxygen at home. Every once in a while when her pain starts up she puts oxygen on and the pain gets better. She does have a history of coronary artery disease with stent placement in the past. She also has atrial fibrillation and Dr. Bobby is addressing that one as well. In the E. R., she did have blood work done which shows normal white count. She also had an elevated BNP at 533. Potassium was 5.1, BUN 58, creatinine 2.04, troponin was negative times 2. Chest x-ray was consistent with congestive heart failure, therefore she was referred for admission for congestive heart failure exacerbation. At time of examination, the patient is alert and oriented, and does not have any complaints and she feels better after putting out approximately 1 liter of urine in the E. R. after getting diuretics. The patient is admitted in stable condition. LABORATORY STUDIES: Chemistries on admission showed initial potassium of 5.1 with sodium at 138. Discharge sodium was 134, potassium 4.8. Initial BUN 58, creatinine was 2.04, at discharge BUN was 49, creatinine 2.06. Liver functions all within normal limits. BMP was elevated at 533, troponin x3 all less than 0.02. CBC showed a white count of 6,200, discharge at 7,800. Hemoglobin and hematocrit stable. At discharge was hemoglobin 10.7 and creatinine 32.3 with platelet count of 185,000. Differential showed to be without a left shift. Coagulation studies showed a D-dimer of 0.37. Urinalysis on admission showed a moderate leukoesterase. Microprosopic revealed 0 to 1 RBCs, 10 to 20 WBCs, 1 to 3 epithelials, 3+ bacteria. MICROBIOLOGY: Urine culture was pending. RADIOLOGY: Chest x-ray on admission showed congestive heart failure with volume overload. HOSPITAL COURSE: Ms. Jang was admitted for congestive heart failure exacerbation. She was put on Lasix and oxygen and showed good clinical response to IV Lasix. Her atrial fibrillation was showing to be controlled without any change in ventricular rate. She was showing to be improving clinically on the morning of discharge. Initially, she was going to be discharged 24 hours previously but she had some nausea and vomiting prior to discharge on that date and was kept an additional 24 hours with no recurrence of the nausea and vomiting. She was not treated for the urine culture as she was asymptomatic. It was felt that she had clinically improved well enough to continue with outpatient management. PHYSICAL ASSESSMENT ON DISCHARGE: VITAL SIGNS: Temperature 98, pulse 72, blood pressure 135.78, respiratory rate 18, oxygen saturation 96% on 2 liters nasal cannula. On admission, she was showing a temperature of 97.5, pulse rate of 123, oxygen saturation of 96%. GENERAL: On the morning of discharge, patient was showing to be without any acute distress. She was ambulating with a walker without any difficulties and having no nausea or vomiting. She was alert. CHEST: Lung sounds clear to auscultation. HEART: Slightly irregular rate and rhythm. ABDOMEN: Soft, non-tender, positive bowel sounds. EXTREMITIES: Without cyanosis, clubbing, or edema. NEUROLOGIC: Alert and oriented x3. PLAN: Ms. Jang was discharged to followup with Dr. Bobby this coming Friday on 09/15/[address] Cotton on 09/22/18 at 1415. She was to continue her medications as prior to admission. She is to return to the hospital should she have worsening of symptoms. Again, she was encouraged to monitor her weight and if she had any significant change greater than 3 pounds or symptomatic, she was to call Dr. Cotton's office or come to the Emergency Room. DISCHARGE DIET: Low sodium. ACTIVITIES: Increase as tolerated utilizing a walker. DISCHARGE MEDICATIONS: No new medications were prescribed. All medications prior to hospitalization were continued without modification. They include: 1. Hydralazine 50 mg t.i.d. 2. Tramadol 50 mg b.i.d. 3. Anoro Ellipta 62.5/25 mcg inhaled, one daily. 4. Olmesartan Medoxomil 40 mg daily. 5. Metoprolol Succinate extended release 25 mg at bedtime. 6. Metoprolol Succinate extended release 50 mg daily. 7. Amitiza 24 mcg b.i.d. as needed. 8. Lasix 20 mg daily. 9. Aricept 5 mg at bedtime. 10. Lipitor 10 mg daily. 11. Aspirin 325 mg daily. 12. Eliquis 5 mg b.i.d. 13. Carol 10/40 mg up to 10 mg tablet daily. 14. Amiodarone 200 mg b.i.d. 15. Allopurinol 300 mg at bedtime. CONDITION ON DISCHARGE: Stable and improved. DISPOSITION: The patient is discharged home. #[id number] [facility]
== END 2018-09-11 15:15 | disposition home health service (06) | DRG 291 ==
LOC: ER 12:28 → MS 15:27
PROVIDERS: ADMIT Nurse Practitioner; ATTEND Nurse Practitioner Family
DX: I13.0 Hypertensive heart and chronic kidney disease with heart failure and stage 1 through stage 4 chronic kidney disease, or unspecified chronic kidney disease (principal); I50.33 Acute on chronic diastolic (congestive) heart failure; R07.9 Chest pain, unspecified; R11.2 Nausea with vomiting, unspecified; N18.9 Chronic kidney disease, unspecified; E87.5 Hyperkalemia; J44.9 Chronic obstructive pulmonary disease, unspecified; E78.5 Hyperlipidemia, unspecified; I25.10 Atherosclerotic heart disease of native coronary artery without angina pectoris; I48.91 Unspecified atrial fibrillation; F03.90 Unspecified dementia, unspecified severity, without behavioral disturbance, psychotic disturbance, mood disturbance, and anxiety; K21.9 Gastro-esophageal reflux disease without esophagitis; G47.33 Obstructive sleep apnea (adult) (pediatric); M10.9 Gout, unspecified; E66.9 Obesity, unspecified; Z66 Do not resuscitate; Z96.652 Presence of left artificial knee joint; Z95.5 Presence of coronary angioplasty implant and graft; Z88.3 Allergy status to other anti-infective agents; Z91.041 Radiographic dye allergy status; Z91.048 Other nonmedicinal substance allergy status; Z87.891 Personal history of nicotine dependence; Z79.02 Long term (current) use of antithrombotics/antiplatelets; Z79.82 Long term (current) use of aspirin; Z79.891 Long term (current) use of opiate analgesic; Z79.899 Other long term (current) drug therapy; Z68.36 Body mass index [BMI] 36.0-36.9, adult

== ENCOUNTER → 2018-10-01 | Outpatient (CLI) | payer MEDICARE | LOC: GMAM 16:53 | PROVIDERS: ATTEND Family Medicine | DX: R53.83 Other fatigue (principal); R06.02 Shortness of breath ==

== ENCOUNTER → 2018-10-29 | Outpatient (CLI) | payer MEDICARE | LOC: YCHH 11:26 | PROVIDERS: ATTEND Family Medicine | DX: E87.6 Hypokalemia (principal) ==

== ENCOUNTER 2018-11-27 14:10 | Inpatient (IN) | payer MEDICARE ==
[2018-11-27] MEDS ORDERED: SOD POLYSTYRENE SULFONATE 15 GM/60 ML BTTL PO ONE (15:15)
[2018-11-27] MEDS ORDERED: SODIUM CHLORIDE 0.9% 1000ML 1,000 ML IVS ONE ×2 (15:16→15:18)
[2018-11-27] MEDS ORDERED: SODIUM BICARBONATE VIAL 50 MEQ/50 ML VIAL IV ONE (15:19)
[2018-11-27] MEDS ORDERED: CALCIUM GLUCONATE INJ 1 GM in SODIUM CHLORIDE 0.9% 50ML 50 ML IVPB ONE (15:19)
[2018-11-27] MEDS ORDERED: metOLazone 2.5 MG TAB PO ONE (15:24)
[2018-11-27] MEDS ORDERED: CALCIUM GLUCONATE INJ 1 GM/10 ML VIAL ONE (15:38)
[2018-11-27] MEDS ORDERED: SODIUM CHLORIDE 0.9% 50ML 50 ML ONE ×2 (15:39→23:06)
--- NOTE | 2018-11-27 15:59 | RAD ---
EXAM DESCRIPTION: Abdomen Series CLINICAL HISTORY: nv bradycardia COMPARISON: 09/10/2018. TECHNIQUE: Frontal views of the chest and abdomen. FINDINGS: Interval development of mild bilateral interstitial pulmonary edema (trace fluid within the right minor fissure) and trace pleural effusions. Mild bibasilar atelectasis. No pneumothorax. The heart is mildly enlarged. Findings can be seen with volume overload state. Several gas-filled loops of bowel is present within the abdomen, nonspecific. No focal localizing sign. No evidence of free intra-abdominal air. No abnormal calcifications. Degenerative changes of the spine. Electronically signed by: Wilver Charles DO 11/27/2018 3:57 PM CDT
[2018-11-27] MEDS ORDERED: FUROSEMIDE INJ 40 MG/4 ML VIAL IV ONE (16:23)
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
--- NOTE | 2018-11-27 19:53 | HP ---
SUPERVISING PHYSICIAN: Adrien Cotton MD CHIEF COMPLAINT: Bradycardia. HISTORY OF PRESENT ILLNESS: This is a 78 year-old female patient who has had 3 weeks of on-and-off nausea, vomiting, diarrhea. Initially, she felt it was due to some sort of food poisoning, especially since about a week ago it subsided, although on the morning of admission she started having the nausea and vomiting again as well as diarrhea. She was in the hospital about 3 months ago, had some issues with her atrial fibrillation. At that time, she had been started on amiodarone in addition to her Toprol. She was also started on Eliquis. Her home health nurse from [facility] saw her today, sees her monthly, and her heart rate was found to be in the high 30s to low 40s and she was sent to the Emergency Room. Also, over the last 3 weeks she has had increased frequency of falls, although she has not lost consciousness nor had any traumatic injuries until the date of admission when she fell at home. She has a contusion to her right upper eyelid. She did not lose consciousness. Her initial vital signs in the Emergency Room showed a temperature of 96.2, heart rate of 45, blood pressure 162/68, respiratory rate 20 and oxygen saturation 92% on 2 liters nasal cannula. She is on oxygen chronically at home due to her chronic obstructive pulmonary disease. She also has a significant history of chronic renal failure and sees Dr. Becerra, physician intensivist, in regard to her renal issues. In the Emergency Room, her WBCs were 5.4 with hemoglobin 9.2, hematocrit 29.2. The remainder of the CBC remained unremarkable. Sodium 129, potassium 6.5, chloride 98, carbon dioxide 21, BUN 95, creatinine 3.40. Her baseline creatinine is 1.5, glucose 108. Cardiac enzymes were negative. BNP 865. The remainder of her metabolic panel was unremarkable. Urinalysis was negative. X-ray shows interval development of mild bilateral interstitial pulmonary edema, trace of fluid within the right minor fissure and a trace of pleural effusion, mild bibasilar atelectasis, no pneumothorax. The heart is mildly enlarged. Findings could be seen with volume overload state. Severe gas-filled loops of bowel present within the abdomen, nonspecific, no focal localizing sign, no evidence of free air, intraabdominal calcifications or degenerative changes of the spine. She was given Kayexalate as well as calcium gluconate. She was also given a dose of Zaroxolyn and Lasix. I was called for hospital admission. PAST MEDICAL HISTORY: 1. Atrial fibrillation. 2. Hypertension. 3. Coronary artery disease. 4. Chronic obstructive pulmonary disease. 5. Chronic kidney disease. 6. Carotid artery disease. 7. Diastolic heart failure with an ejection fraction of 70% from echocardiogram in 2017. 8. Mild dementia. 9. Gastroesophageal reflux disease. 10. Hyperlipidemia. 11. Obstructive sleep apnea. 12. Gout. PAST SURGICAL HISTORY: 1. Tonsillectomy. 2. PTCA with stents. 3. Left total knee arthroplasty times 3. CURRENT MEDICATIONS: Per the EMR and awaiting verification. . ALLERGIES: BETADINE, RADIOGRAPHIC DYES AND IODINE. FAMILY HISTORY: Noncontributory. SOCIAL HISTORY: She is . She has 9 children and lives in [place]. She quit smoking in her 20s. She drinks alcohol on an occasional bases. She denies any illicit drug use. REVIEW OF SYSTEMS: GENERAL: Negative for fever, fatigue or weight changes. HEENT: Negative for sinus symptoms, ear pain, vision changes or sore throat. RESPIRATORY: Positive for shortness of breath, negative for wheezing or coughing. CARDIAC: Negative for chest pain, palpitations or tachycardia. GASTROINTESTINAL: Positive for nausea, vomiting, diarrhea, negative for constipation. GENITOURINARY: Negative for hematuria, dysuria or polyuria. MUSCULOSKELETAL: Negative for arthralgias, myalgias. SKIN: Negative for lesions or rashes. Negative for lesions or rashes. NEUROLOGIC: Negative for headache or seizures. Positive for dizziness. PHYSICAL EXAMINATION: VITAL SIGNS: Temperature 97.1, heart rate 48. Blood pressure 162/76, respiratory rate 24, oxygen saturation 94% on 2 liters nasal cannula. GENERAL: This is a 78 year-old female lying in her hospital bed. She is in mild respiratory distress. . HEENT: Normocephalic and atraumatic. Pupils are equal and reactive. Oropharynx is clear. CHEST: Bilateral rales, diminished at the bases. No expiratory wheezing. There is equal rise and fall of the chest with inspiration and expiration. CARDIOVASCULAR: Bradycardic rate, regular rhythm, sinus estevan on the cafeteria monitor. ABDOMEN: Soft, nondistended, non-tender. Bowel sounds are positive. EXTREMITIES: Bilateral pedal pulses and radial pulses are +2 bilaterally.. NEUROLOGIC: The patient is awake, alert and oriented x3. Cranial nerves II through XII are grossly intact. FOLLOWUP LABORATORY: Sodium 130, potassium 6, chloride 100, carbon dioxide 20. BUN 90, creatinine 3.19, glucose 139, calcium 9.6, magnesium 2.2. All other labs and films are per the history of present illness and have been reviewed in the EMR ASSESSMENT: 1. Severe bradycardia with a history of atrial fibrillation, on amiodarone and Toprol. 2. Acute on chronic kidney disease. Creatinine today was 3.4, baseline is 1.5. 3. Hyperkalemia, admitting potassium of 6.5. 4. Nausea, vomiting, diarrhea with dehydration x3 weeks that has come and gone. 5. Increased frequency of falls with contusion to the right upper eyelid from same-level fall today at home prior to coming to the Emergency Room. 6. History of atrial fibrillation on Toprol, amiodarone and Eliquis, recently put on amiodarone approximately [address] Bobby, her skin diving teacher. 7. Congestive heart failure, diastolic with a 70% ejection fraction per her echocardiogram in 2017. Patient is having a mild exacerbation. 8. Gastroesophageal reflux disease. 9. Coronary artery disease. 10. Chronic obstructive pulmonary disease. 11. Hypertension. 12. Hyperlipidemia. PLAN: We will admit the patient to the hospital. She will be placed on the cafeteria monitor and will monitor her heart rate closely. I will hold her amiodarone and her Toprol, her bradycardiac issues may be due to the chronic renal insufficiency and may be contributing to both her falls and her low heart rate. Will start her Toprol back, we may need to call Dr. Bobby with guidance for the amiodarone. It may be helpful to discharge her on a cafeteria monitor. She received some Lasix and Metolazone in the Emergency Room. I have not restarted either of those as it may be beneficial to call Dr. Becerra for guidance and recommendations on her kidney function. I will repeat her lab in the morning. Hopefully, with hydration her potassium will come down. I have ordered her antiemetics for the nausea or vomiting. I will make her n.p.o. at midnight. Will do CT of the abdomen in the morning. Most likely, her falls were due to her bradycardia, again she will most likely need a cafeteria monitor 2 to 3 weeks after discharge. It may be beneficial to get another echocardiogram if she is still here Friday since her last echocardiogram was early in 2016. We will continue to monitor her closely and follow as needed. #[id number] MTDD
[2018-11-27] MEDS ORDERED: ONDANSETRON INJ 4 MG/2 ML VIAL IV PRN (20:07)
[2018-11-27] MEDS ORDERED: SODIUM CHLORIDE 0.9% (FLUSH) 10 ML SYG IV PRN (20:07)
[2018-11-27] MEDS ORDERED: SODIUM CHLORIDE 0.9% 1000ML 1,000 ML IVS PRN (20:22)
[2018-11-27] MEDS ORDERED: ALBUTEROL SULFATE 2.5 MG/3 ML VIAL NEB PRN (20:22)
[2018-11-27] MEDS ORDERED: traMADol HCL 50 MG TAB PO SCH (20:30)
[2018-11-27] MEDS ORDERED: diphenhydrAMINE HCL 25 MG CAP PO PRN (20:30)
[2018-11-27] MEDS ORDERED: IV SET AND CAP CHANGE INJ INJ SCH (20:30)
[2018-11-27] MEDS ORDERED: SODIUM CHLORIDE 0.9% (FLUSH) 10 ML SYG IV SCH (21:00)
[2018-11-27] MEDS ORDERED: FUROSEMIDE 40 MG TAB PO SCH (21:00)
[2018-11-27] MEDS ORDERED: METOPROLOL SUCCINATE XL 50 MG TAB PO SCH (21:00)
[2018-11-27] MEDS ORDERED: METOPROLOL SUCCINATE XL 50 MG TAB ONE (21:51)
[2018-11-27] MEDS: NON-FORMULARY MEDICATION 1 EA MIS (Olmesartan Medoxomil [Benicar] 40 MG) PO SCH (22:06)
[2018-11-27] MEDS: ALLOPURINOL 300 MG TAB PO SCH (22:06)
[2018-11-27] MEDS: APIXABAN 5 MG TAB PO SCH (22:07)
[2018-11-27] MEDS ORDERED: PROMETHAZINE HCL INJ 25 MG/ML VIAL ONE (23:06)
[2018-11-27] MEDS ORDERED: PROMETHAZINE HCL INJ 25 MG in SODIUM CHLORIDE 0.9% 50ML 50 ML IVPB ONE (23:11)
[2018-11-27] MEDS ORDERED: PROMETHAZINE HCL INJ 25 MG in SODIUM CHLORIDE 0.9% 50ML 50 ML IVPB PRN (23:48)
[2018-11-27] MEDS: NYSTATIN POWDER 15GM BTTL TOP SCH (23:50)
[2018-11-28] MEDS: TEMAZEPAM 15 MG CAP PO PRN ×2 (00:44→21:03)
[2018-11-28] MEDS: ALBUTEROL SULFATE 2.5 MG/3 ML VIAL NEB SCH ×4 (08:22→20:35)
[2018-11-28] MEDS ORDERED: traMADol HCL 50 MG TAB PO PRN (08:30)
[2018-11-28] MEDS: POLYETHYLENE GLYCOL 3350 17 GM PCKT PO SCH (08:53)
[2018-11-28] MEDS: amLODIPine BESYLATE 5 MG TAB PO SCH (08:55)
[2018-11-28] MEDS: FUROSEMIDE 40 MG TAB PO SCH (08:55)
[2018-11-28] MEDS: LUBIPROSTONE 24 MCG CAP PO SCH (08:55)
[2018-11-28] MEDS: APIXABAN 5 MG TAB PO SCH ×2 (08:55→21:04)
[2018-11-28] MEDS: ASPIRIN TABLET 325 MG TAB PO SCH (08:55)
[2018-11-28] MEDS ORDERED: AMIODARONE HCL 200 MG TAB PO SCH (09:00)
[2018-11-28] MEDS ORDERED: FLUCONAZOLE 150 MG TAB PO ONE (09:00)
[2018-11-28] MEDS: NON-FORMULARY MEDICATION 1 EA MIS (Umeclidinium-Vilanterol [Anoro Ellipta 62.5-25 Mcg/Inh] IN SCH ×2 (09:05→09:15)
[2018-11-28] MEDS: NYSTATIN POWDER 15GM BTTL TOP SCH ×4 (09:30→21:04)
[2018-11-28] MEDS ORDERED: SODIUM CHLORIDE 0.9% (FLUSH) 10 ML SYG IV ONE (11:45)
--- NOTE | 2018-11-28 12:07 | CT ---
PROCEDURE: CT Abdomen and Pelvis Without Intravenous Contrast CLINICAL INDICATION: The patient is 78 years old and is Female; abd pain MAIN TECHNIQUE: Axial computed tomography images of the abdomen and pelvis without intravenous contrast. Sagittal and coronal reformatted images were created and reviewed. This CT exam was performed using one or more of the following dose reduction techniques: automated exposure control, adjustment of the mA and/or kV according to patient size, and/or use of iterative reconstruction technique. COMPARISON: Prior noncontrast CT from 07/01/2017. FINDINGS: LIMITATIONS: The study is compromised by patient body habitus. LUNG BASES: Patchy areas of atelectasis are noted at the lung bases, but there is also interlobular septal thickening. PLEURAL SPACE: There are new bilateral pleural effusions noted, small in size but RIGHT greater than LEFT. HEART: The heart size is enlarged. There are coronary artery calcifications noted. ABDOMEN: LIVER: There is hepatomegaly. This is stable. GALLBLADDER AND BILE DUCTS: Nitrogen containing gallstone noted along with calcified dependent gallstones. No ductal dilation. PANCREAS: Unremarkable. No ductal dilation. SPLEEN: Unremarkable. No splenomegaly. No splenic lesion noted. ADRENALS: Unremarkable. No mass. KIDNEYS AND URETERS: There is no evidence of nephrolithiasis or ureteral obstruction bilaterally on this noncontrast CT. Stable anterior lower pole RIGHT renal cyst. Stable bilateral perinephric stranding. There is bilateral renal cortical thinning. STOMACH AND BOWEL: There is diverticulosis coli without diverticulitis. There is no evidence of bowel obstruction. PELVIS: APPENDIX: The appendix is visualized and is normal in appearance. BLADDER: There is a Castelan catheter decompressing the urinary bladder. No stones. REPRODUCTIVE: The uterus is atrophic. The uterus is retroverted. ABDOMEN and PELVIS: INTRAPERITONEAL SPACE: Unremarkable. No free air. No significant fluid collection. BONES/JOINTS: There are degenerative changes of the spine identified. There is a chronic L3 superior endplate compression fracture. SOFT TISSUES: There is thickening likely to represent circular muscular hypertrophy involving the sigmoid colon, without acute inflammation identified. There is rectus diastases of the anterior abdominal wall. There is a small fat containing umbilical hernia noted. VASCULATURE: There are atheromatous vascular calcifications of the aortoiliac system. Mesenteric vessels are also calcified. No abdominal aortic aneurysm. LYMPH NODES: Unremarkable. No significant retroperitoneal or pelvic lymphadenopathy. IMPRESSION: 1. There are new bilateral pleural effusions noted, small in size but RIGHT greater than LEFT. Cardiomegaly with interlobular septal thickening at the lung bases. These findings are new since the prior CT from 1.5 years earlier. May reflect congestive heart failure. 2. Nitrogen containing gallstone noted along with calcified dependent gallstones. This is stable. No pericholecystic inflammation. 3. There is thickening likely to represent circular muscular hypertrophy involving the sigmoid colon, without acute inflammation identified. There is diverticulosis of the sigmoid colon. 4. There is no evidence of nephrolithiasis or ureteral obstruction bilaterally on this noncontrast CT. Electronically signed by: Roc Sanchez MD 11/28/2018 8:26 AM CDT
[2018-11-28] MEDS: NON-FORMULARY MEDICATION 1 EA MIS (Olmesartan Medoxomil [Benicar] 40 MG) PO SCH (13:27)
[2018-11-28] MEDS ORDERED: PANTOPRAZOLE INJECTION 80 MG in SODIUM CHLORIDE 0.9% 100ML 80 ML IVPB ONE (13:30)
[2018-11-28] MEDS ORDERED: CEFEPIME 2 GM in SODIUM CHL 0.9% 50ML MIN-BAG+ 50 ML IVPB ONE (13:37)
[2018-11-28] MEDS: MORPHINE SULFATE INJ 10 MG/ML VIAL IV PRN (13:46)
[2018-11-28] MEDS ORDERED: SODIUM CHL 0.9% 50ML MIN-BAG+ 50 ML IVPB ONE (14:04)
[2018-11-28] MEDS ORDERED: metroNIDAZOLE IV PREMIX 500MG 100 ML IVPB ONE ×2 (14:04→19:39)
[2018-11-28] MEDS ORDERED: PANTOPRAZOLE SODIUM IV 40 MG VIAL ONE (14:04)
[2018-11-28] MEDS ORDERED: CEFEPIME 2 GM VIAL ONE (14:04)
[2018-11-28] MEDS ORDERED: SODIUM CHLORIDE 0.9% 100ML 100 ML IVPB ONE (14:05)
[2018-11-28] MEDS: metroNIDAZOLE IV PREMIX 500MG 500 MG in PREMIX BAG 1 BAG IVPB SCH ×2 (15:02→21:04)
[2018-11-28] MEDS: SUCRALFATE 1 GM TAB PO SCH ×2 (16:44→21:03)
[2018-11-28] MEDS: SODIUM CHLORIDE 0.9% 1000ML 1,000 ML IVS PRN (16:45)
[2018-11-28] MEDS: DONEPEZIL HCL 5 MG TAB PO SCH (21:03)
[2018-11-28] MEDS: traMADol HCL 50 MG TAB PO PRN (21:04)
[2018-11-28] MEDS: ATORVASTATIN 10 MG TAB PO SCH (21:04)
[2018-11-28] MEDS: ALLOPURINOL 300 MG TAB PO SCH (21:04)
--- NOTE | 2018-11-28 22:08 | PN ---
DATE: 11/28/18 SUPERVISING PHYSICIAN: Adrien Cotton M.D. SUBJECTIVE: The patient has been complaining of some nausea and vomiting prior to admission. She notes that she has not been real nauseated here but she does have some abdominal pains reported more so in the epigastric region and then down into the left lower quadrant. She reports this has been going on for 3 weeks but had not sought any medical attention that she thought she had some food poisoning. She has also noted that she has had a chest pain or two but essentially it is more with the epigastrium. She has been afebrile but continues to have a significant amount of diarrhea. OBJECTIVE: VITAL SIGNS: Temperature 97.8, pulse in the high 40s to low 50s with blood pressure 150/67, respirations 20, satting 93% on 3 liters nasal cannula and 92% on room air. GENERAL: The patient looks generally unwell but does not appear to be in any acute distress. CHEST: Lungs are fairly clear today, just diminished towards the bases. No obvious rhonchi, wheezing or rales. HEART: Regular rate and rhythm but bradycardic on bedside monitor. ABDOMEN: Soft, nondistended with tenderness noted in the epigastrium and down into the left lower quadrant with active bowel sounds. EXTREMITIES: Without any edema. NEUROLOGIC: She is alert and oriented times three. LABORATORY: Sodium 133, potassium 5.4 which is down from 6.5 on admission with carbon dioxide 21 and BUN 87, creatinine 2.93. Liver functions are showing to be within normal limits. Troponin was less than 0.02. RADIOLOGY: She had a CT of the abdomen and pelvis without contrast and per radiology interpretation noted there was new bilateral pleural effusions, small in size but right greater than left with cardiomegaly with intralobular septal thickening at the lung bases with findings being new from CT a year and a half previously which may reflect congestive heart failure. There was also noted some nitrogen containing gallstones noted along with calcified dependent stones showing to be stable with no pericholecystic inflammation. There was note of some thickening likely representing circular muscular hypertrophy involving the sigmoid colon without any acute inflammation identified. There was some diverticulosis of the sigmoid colon mentioned. ASSESSMENT: 1. Bradycardia with a history of atrial fibrillation previously on amiodarone and Toprol with the patient being hemodynamically stable with some history of syncopal episodes in the last weeks or so. 2. Acute renal failure with Creatinine baseline being 1.5 probably contributed to chronic NSAID usage exacerbated by medications to include Coreg and exacerbated by some dehydration due to prerenal azotemia from continued Lasix and persistent nausea and vomiting over several weeks. 3. Hyperkalemia likely due to #2 showing response to treatment. 4. History of nausea, vomiting with associated diarrhea for 3 weeks, etiology uncertain, although CT did show some sigmoid diverticulosis. Differential possibly would include infectious inflammatory colitis with stool samples pending. 5. Increase in falls with contusion to the right upper eyelid probably secondary to #1. 6. History of atrial fibrillation currently on Toprol and amiodarone as well as Eliquis with being put on amiodarone within the last [address] Bobby. 7. History of congestive heart failure with diastolic ejection fraction of 70% per echocardiogram in 2017 showing some mild exacerbation with an elevated BNP on admission. 8. Gastroesophageal reflux disease with some exacerbation with some epigastric discomfort and a past history of duodenitis and gastritis diagnosed by EGD. 9. Coronary artery disease. 10. Chronic obstructive pulmonary disease with no current signs of exacerbation. 11. Hypertension. 12. Hyperlipidemia. PLAN: Will continue current plan at this point. Will hold her amiodarone and Toprol, and monitor her heart rate closely. I went ahead and started her on some Flagyl and Cefepime given her renal function and cardiac history trying to avoid Levaquin. She is tolerating a diet. Will continue with this. She is still dry and after talking with Dr. Becerra feels like she needs continuation of fluids with close monitoring as right now there does not seem to be any real significant exacerbation of CHF. Will continue with normal saline at 80 an hour and monitor closely. Will continue to monitor her potassium levels but hold off on any additional treatment at this point awaiting repeat labs in the morning. I anticipate she will not go home before at least Friday or Friday and then she will need an echocardiogram given that she did have a BNP that was elevated to ensure that her EF has not changed since the last one in 2017. Until we can transition her to outpatient management will continue to monitor and treat as needed. #[id number] [facility]
[2018-11-29] MEDS ORDERED: metroNIDAZOLE IV PREMIX 500MG 100 ML IVPB ONE ×3 (04:53→21:02)
[2018-11-29] MEDS: metroNIDAZOLE IV PREMIX 500MG 500 MG in PREMIX BAG 1 BAG IVPB SCH ×3 (05:43→22:30)
[2018-11-29] MEDS: SODIUM CHLORIDE 0.9% 1000ML 1,000 ML IVS PRN ×2 (06:52→23:51)
[2018-11-29] MEDS: SUCRALFATE 1 GM TAB PO SCH ×4 (06:52→21:06)
[2018-11-29] MEDS: MORPHINE SULFATE INJ 10 MG/ML VIAL IV PRN (07:30)
[2018-11-29] MEDS: LUBIPROSTONE 24 MCG CAP PO SCH (07:33)
[2018-11-29] MEDS: ALBUTEROL SULFATE 2.5 MG/3 ML VIAL NEB SCH ×4 (07:43→20:45)
[2018-11-29] MEDS: NON-FORMULARY MEDICATION 1 EA MIS (Umeclidinium-Vilanterol [Anoro Ellipta 62.5-25 Mcg/Inh] IN SCH (08:15)
[2018-11-29] MEDS: ASPIRIN TABLET 325 MG TAB PO SCH (08:24)
[2018-11-29] MEDS: amLODIPine BESYLATE 5 MG TAB PO SCH (08:24)
[2018-11-29] MEDS: POLYETHYLENE GLYCOL 3350 17 GM PCKT PO SCH (08:24)
[2018-11-29] MEDS: APIXABAN 5 MG TAB PO SCH ×2 (08:24→21:06)
[2018-11-29] MEDS: FLUCONAZOLE 100 MG TAB PO SCH (08:24)
[2018-11-29] MEDS ORDERED: NON-FORMULARY MEDICATION 1 EA MIS (Olmesartan Medoxomil [Benicar] 40 MG) PO SCH (09:00)
[2018-11-29] MEDS: NYSTATIN POWDER 15GM BTTL TOP SCH ×4 (09:52→21:06)
--- NOTE | 2018-11-29 12:04 | RAD ---
EXAM: XR Chest, 1 View CLINICAL HISTORY: SOB TECHNIQUE: Frontal view of the chest. COMPARISON: 09/10/2018. FINDINGS: Limitations: None. Lungs: Unremarkable. No consolidation. Pleural space: Unremarkable. No pneumothorax. Heart: Stable enlargement of the cardiac shadow. Mediastinum: Unremarkable. Bones/joints: Unremarkable. Vasculature: There is vascular congestion and central vascular engorgement. IMPRESSION: There is vascular congestion and central vascular engorgement. Electronically signed by: Macy Monk MD 11/29/2018 12:03 PM CDT
[2018-11-29] MEDS: PANTOPRAZOLE SODIUM IV 40 MG VIAL IV SCH (14:46)
[2018-11-29] MEDS: FUROSEMIDE 40 MG TAB PO SCH ×3 (17:10→17:22)
[2018-11-29] MEDS ORDERED: FUROSEMIDE 40 MG TAB ONE (17:15)
[2018-11-29] MEDS: DONEPEZIL HCL 5 MG TAB PO SCH (21:05)
[2018-11-29] MEDS: TEMAZEPAM 15 MG CAP PO PRN (21:05)
[2018-11-29] MEDS: traMADol HCL 50 MG TAB PO PRN (21:05)
[2018-11-29] MEDS: ALLOPURINOL 300 MG TAB PO SCH (21:06)
[2018-11-29] MEDS: ATORVASTATIN 10 MG TAB PO SCH (21:06)
--- NOTE | 2018-11-29 21:47 | PN ---
DATE: 11/29/18 SUPERVISING PHYSICIAN: Adrien Cotton M.D. SUBJECTIVE: The patient notes that she is feeling a little bit better today. She is still having some shortness of breath. She has been afebrile. She has not had any additional episodes of diarrhea since yesterday. Her potassium still remains elevated as well as her creatinine is staying elevated around 3 but she has good output and is not showing any signs of overt pulmonary edema. In fact her BNP has decreased about 30% since admission. She did have some continued pain yesterday which she considered epigastric pain which did decrease with some morphine as well. She continues to have left lower quadrant pain. OBJECTIVE: VITAL SIGNS: Temperature 98.7, pulse 61, blood pressure 149/62, respirations 22, satting 92% on 3 liters nasal cannula. I's and O's are showing a positive balance of 675. GENERAL: The patient looks generally unwell but does not appear to be in any acute distress. CHEST: Lungs are fairly clear today, just diminished towards the bases. No obvious rhonchi, wheezing or rales. HEART: Regular rate and rhythm but bradycardic on bedside monitor. ABDOMEN: Soft, nondistended with tenderness noted in the epigastrium and down into the left lower quadrant with active bowel sounds. EXTREMITIES: Without any edema. NEUROLOGIC: She is alert and oriented times three. LABORATORY: Sodium now has normalized to 135 but potassium is still elevated at 5.1. BNP is actually down to 618 from admission of 869. Carbon dioxide is still low at 20 but her anion gap remains normal. BUN is 87, creatinine has gone up 3.12 but her serum osmolality is still elevated at 296. Glucose was 99. MICROBIOLOGY: No microbiology specimens pending. RADIOLOGY: Chest x-ray this morning per radiology interpretation of a single view chest shows vascular congestion and central vascular engorgement. ASSESSMENT: 1. Bradycardia but not symptomatic with a history of atrial fibrillation having been on Amiodarone and Toprol with the patient showing to be hemodynamically stable with a history of syncopal episodes in the last several weeks still off Amiodarone and Toprol at this point. 2. Acute renal failure with a baseline creatinine at 1.5, still uncertain etiology but possibly related to chronic NSAID usage and exacerbated by other medications including Coreg and some prerenal azotemia from dehydration due to Lasix and having been persistently nauseated with persistent vomiting over the last several weeks. 3. Hyperkalemia due to #2 but now showing to be stable. 4. History of nausea, vomiting with associated diarrhea for 3 weeks, uncertain etiology but possibly due to sigmoid diverticulosis with some diverticulitis with stool samples pending. 5. Increase in number of falls with contusion to the right upper eyelid from fall prior to admission probably due to #1. 6. History of congestive heart failure with a preserved ejection fraction of 70% in 2017 showing to be without any obvious signs of exacerbation but with an elevated BNP on admission possibly due to underlying dehydration but showing improvement with fluids. 7. Gastroesophageal reflux disease with exacerbation with some epigastric discomfort and a history of duodenitis and gastritis diagnosed by EGD improving with treatment. 8. Coronary artery disease. 10. Chronic obstructive pulmonary disease with no current signs of exacerbation. 11. Hypertension. 12. Hyperlipidemia. PLAN: Will continue with Amiodarone and Toprol being held as we continue to follow her rate. She is on Flagyl and Cefepime that has been renally dosed and trying to avoid any Levaquin for underlying treatment of the questionable diverticulitis with a continued left lower quadrant pain. If she continues to have significant pain I will probably get Dr. Montenegro to see her in consultation. She also continues to have chronic elevated creatinine which is possibly related to dehydration after talking to Dr. Becerra, but if she is not showing any improvements by tomorrow after being on fluids now for 48 hours, I will again touch base with Dr. Becerra and see if he can provide any assistance in treatment of her renal function. In regards to the CHF, will continue to monitor this. I have restarted her Lasix just as a precaution since it looks like on her x-ray there is some vascular congestion, although she is not symptomatic at this point. I would anticipate that she probably will not go home for at least the next 2 to 3 days. Will hopefully get an echocardiogram on Friday to see if there is any significant change from the one in 2017. On discharge, she will certainly need to followup with her primary care provider, GI specialist and cardiology. Until then will continue to monitor and treat as needed. #[id number] [facility]
--- NOTE | 2018-11-29 21:47 | RAD ---
EXAM: XR Chest, 1 View CLINICAL HISTORY: The patient is 78 years old and is Female; increased SOB on exertion TECHNIQUE: Frontal view of the chest. COMPARISON: Chest radiograph from 11/29/2018 at 11:14 AM FINDINGS: LUNGS: There is pulmonary vascular congestion. Slight interval improvement in interstitial prominence in the lungs, suggesting improved interstitial edema. PLEURAL SPACE: No significant pleural effusion. No obvious pneumothorax. HEART: Stable mild enlargement of the cardiac silhouette. MEDIASTINUM: Unremarkable. BONES/JOINTS: No acute osseous findings. IMPRESSION: Slight interval improvement in interstitial edema. Electronically signed by: Radha Moreira MD 11/29/2018 9:46 PM CDT
[2018-11-30] MEDS ORDERED: metroNIDAZOLE IV PREMIX 500MG 100 ML IVPB ONE ×2 (04:59→13:26)
[2018-11-30] MEDS: PANTOPRAZOLE SODIUM IV 40 MG VIAL IV SCH (05:16)
[2018-11-30] MEDS: metroNIDAZOLE IV PREMIX 500MG 500 MG in PREMIX BAG 1 BAG IVPB SCH ×2 (05:20→13:37)
[2018-11-30] MEDS: SUCRALFATE 1 GM TAB PO SCH ×2 (05:59→11:46)
[2018-11-30] MEDS: LUBIPROSTONE 24 MCG CAP PO SCH (07:43)
[2018-11-30] MEDS: ASPIRIN TABLET 325 MG TAB PO SCH (08:24)
[2018-11-30] MEDS: POLYETHYLENE GLYCOL 3350 17 GM PCKT PO SCH (08:24)
[2018-11-30] MEDS: FLUCONAZOLE 100 MG TAB PO SCH (08:24)
[2018-11-30] MEDS: APIXABAN 5 MG TAB PO SCH (08:26)
[2018-11-30] MEDS: amLODIPine BESYLATE 5 MG TAB PO SCH (08:26)
[2018-11-30] MEDS: NYSTATIN POWDER 15GM BTTL TOP SCH ×2 (08:27→13:37)
[2018-11-30] MEDS: NON-FORMULARY MEDICATION 1 EA MIS (Umeclidinium-Vilanterol [Anoro Ellipta 62.5-25 Mcg/Inh] IN SCH (08:38)
[2018-11-30] MEDS: ALBUTEROL SULFATE 2.5 MG/3 ML VIAL NEB SCH ×2 (08:38→12:38)
[2018-11-30] MEDS: traMADol HCL 50 MG TAB PO PRN (10:54)
[2018-11-30 12:04] VITALS: BP 139/50; TEMP 98.5
--- NOTE | 2018-11-30 14:04 | DS ---
SUPERVISING PHYSICIAN: Hollis Ott MD ADMISSION DIAGNOSIS: 1. Severe bradycardia with a history of atrial fibrillation, on amiodarone and Toprol. 2. Acute on chronic kidney disease. 3. Hyperkalemia. 4. Nausea, vomiting and diarrhea for 3 weeks. 5. Increased frequency of falls. 6. History of atrial fibrillation. 7. Congestive heart failure, diastolic. 8. Gastroesophageal reflux disease. 9. Coronary artery disease. 10. Chronic obstructive pulmonary disease. 11. Hypertension. 12. Hyperlipidemia. DISCHARGE DIAGNOSIS: 1. Severe bradycardia with a history of atrial fibrillation, on amiodarone and Toprol. 2. Acute on chronic kidney disease. 3. Hyperkalemia. 4. Nausea, vomiting and diarrhea for 3 weeks. 5. Increased frequency of falls. 6. History of atrial fibrillation. 7. Congestive heart failure, diastolic. 8. Gastroesophageal reflux disease. 9. Coronary artery disease. 10. Chronic obstructive pulmonary disease. 11. Hypertension. 12. Hyperlipidemia. HISTORY OF PRESENT ILLNESS: This is a 78-year-old female patient who came into the Emergency Room with a 3 week history of off and on nausea and vomiting along with diarrhea. Apparently, at first they thought it was some food poisoning. She had it for a couple of weeks and it kind of went away, but then it resumed the morning of admission. She was seen by home health nurse and noted to have a low heart rate. Therefore, she was sent to the Emergency Room. In the Emergency Room, her workup included labs and films as well as EKG. She was noted to have significant bradycardia with a heart rate in the 30s to 40s. Labs showed an elevation in her creatinine to 3.4 above her baseline of 1.5. Therefore, she was admitted for dehydration, acute on chronic kidney disease, hypokalemia. She also had a little bit of left lower quadrant abdominal pain. A CT scan of the abdomen and pelvis was done and showed diverticulosis, but no diverticulitis. There was no leukocytosis. She was empirically placed on Flagyl. However, Dr. Becerra, her door repairer bus, was contacted as well and he instructed to put her on some hydration and hold her diuretics. This was done over the last 3 days. Initially, she had a little bit of improvement in her creatinine, but then it started to go up quite a bit again. It got as low as 2.9, but it has gone back to 3.3. Her potassium has also gone back to 5.1, although that is significantly better than the admission potassium of 6.5. She continues to feel weak and a little bit short of breath. I contacted Dr. Becerra today given her most recent labs and he instructed to transfer her to [facility]. Therefore, I spoke with Dr. Gusman at [facility] to get the patient transferred. He has actually accepted the patient, however, they do not have any Acute Care beds at this time. Therefore, as soon as they have a bed, they will give us a phone call and that will allow us to transfer her to [facility]. In the interim, we will continue the IV hydration and continue current medications. We are continuing to hold all diuretics. Additionally, her metoprolol and amiodarone have been on hold given the bradycardia, which is improved but she is not in rapid ventricular response at this time. #[id number] [facility]
[2018-11-30 14:14] VITALS: O2SAT 95
== END 2018-11-30 15:53 | disposition short-term general hospital (02) | DRG 683 ==
LOC: ER 14:10 → UNDOADMOB 19:51 → OBSVTOIN 19:51 → MS 19:51
PROVIDERS: ADMIT Nurse Practitioner Acute Care; ATTEND Nurse Practitioner
DX: N17.9 Acute kidney failure, unspecified (principal); I50.30 Unspecified diastolic (congestive) heart failure; I13.0 Hypertensive heart and chronic kidney disease with heart failure and stage 1 through stage 4 chronic kidney disease, or unspecified chronic kidney disease; K57.32 Diverticulitis of large intestine without perforation or abscess without bleeding; R00.1 Bradycardia, unspecified; I48.91 Unspecified atrial fibrillation; N18.9 Chronic kidney disease, unspecified; E87.5 Hyperkalemia; R29.6 Repeated falls; K21.9 Gastro-esophageal reflux disease without esophagitis; I25.10 Atherosclerotic heart disease of native coronary artery without angina pectoris; J44.9 Chronic obstructive pulmonary disease, unspecified; E78.5 Hyperlipidemia, unspecified; E86.0 Dehydration; I50.9 Heart failure, unspecified; G47.33 Obstructive sleep apnea (adult) (pediatric); F03.90 Unspecified dementia, unspecified severity, without behavioral disturbance, psychotic disturbance, mood disturbance, and anxiety; M10.9 Gout, unspecified; Z95.5 Presence of coronary angioplasty implant and graft; Z96.652 Presence of left artificial knee joint; Z88.3 Allergy status to other anti-infective agents; Z91.041 Radiographic dye allergy status; Z91.048 Other nonmedicinal substance allergy status; Z87.891 Personal history of nicotine dependence; T44.7X5A Adverse effect of beta-adrenoreceptor antagonists, initial encounter; T50.1X5A Adverse effect of loop [high-ceiling] diuretics, initial encounter; Y92.009 Unspecified place in unspecified non-institutional (private) residence as the place of occurrence of the external cause; Z79.891 Long term (current) use of opiate analgesic; Z79.82 Long term (current) use of aspirin; Z79.01 Long term (current) use of anticoagulants; Z79.899 Other long term (current) drug therapy

== ENCOUNTER 2018-12-14 13:33 | Emergency (ER) | payer MEDICARE ==
[2018-12-14] MEDS ORDERED: FUROSEMIDE INJ 40 MG/4 ML VIAL IV ONE (13:38)
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
--- NOTE | 2018-12-14 14:12 | RAD ---
EXAM DESCRIPTION: Chest,2 Views CLINICAL HISTORY: 78 years Female, sob COMPARISON: 11/29/2018 TECHNIQUE: Frontal and lateral views of the chest. IMPRESSION: Stable borderline enlargement cardiac silhouette. Partially calcified aorta. Largely unchanged pulmonary edema versus atypical pneumonia. No pleural effusion or pneumothorax. Thoracic spondylosis. Electronically signed by: Oswald Arguello MD 12/14/2018 2:10 PM PLASTICS SCIENTIST
[2018-12-14 16:04] VITALS: BP 148/74; TEMP 98.1; O2SAT 92
== END 2018-12-14 16:12 | disposition short-term general hospital (02) ==
LOC: ER 13:33
DX: N17.9 Acute kidney failure, unspecified (principal); E87.70 Fluid overload, unspecified; D64.9 Anemia, unspecified; J44.9 Chronic obstructive pulmonary disease, unspecified; I50.9 Heart failure, unspecified; I11.0 Hypertensive heart disease with heart failure; I48.91 Unspecified atrial fibrillation; Z99.81 Dependence on supplemental oxygen; Z87.891 Personal history of nicotine dependence; Z79.899 Other long term (current) drug therapy; Z79.82 Long term (current) use of aspirin; Z91.041 Radiographic dye allergy status; Z87.01 Personal history of pneumonia (recurrent)
CPT/HCPCS: 71046; 80053; 83880; 84484; 85025; 93005; J1940

== ENCOUNTER 2018-12-20 04:03 | Inpatient (IN) | payer MEDICARE ==
[2018-12-20] MEDS ORDERED: SODIUM CHLORIDE 0.9% (FLUSH) 10 ML SYG IV PRN (04:34)
[2018-12-20] MEDS ORDERED: ASPIRIN TABLET 325 MG TAB PO ONE (04:34)
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
--- NOTE | 2018-12-20 06:07 | RAD ---
EXAM: XR Chest, 1 View CLINICAL HISTORY: The patient is 78 years old and is Female; sob TECHNIQUE: Frontal view of the chest. COMPARISON: Chest radiograph December 14, 2018. FINDINGS: LUNGS: Diffuse interstitial opacities are present throughout the lungs. PLEURAL SPACE: Unremarkable. No pneumothorax. HEART: The cardiac silhouette is enlarged. MEDIASTINUM: Unremarkable. BONES/JOINTS: There are degenerative changes of the bones. VASCULATURE: Enlargement of the central vasculature is noted. Atherosclerosis of the aorta is present. IMPRESSION: Cardiomegaly with findings suggestive of interstitial edema, grossly stable. 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
--- NOTE | 2018-12-20 06:11 | HP ---
SUPERVISING PHYSICIAN: Chuy García M.D. CHIEF COMPLAINT: Shortness of breath. HISTORY OF PRESENT ILLNESS: This is a 78 year-old female with multiple chronic medical conditions, who came to the Emergency Room via EMS due to shortness of breath. She is at [facility] and was recently discharged from [facility] for congestive heart failure exacerbation at that time as well. However, she was discharged back to the long term and not placed on diuretic therapy. Additionally it does not look like she was placed on her nebulizers either. Today whenever she was seen via EMS her O2 saturations were in the 80s on 2 liters via nasal cannula. Her O2 saturations did go up with that. In route to the hospital, she was given 40 mg of Furosemide. In the Emergency Room, she was seen and her chest x-ray showed pulmonary vascular congestion consistent with congestive heart failure exacerbation. Her labs were done as well and showed an elevated white count of 12.3 with a left shift of 84.7. Hemoglobin is 9.0, platelet count 166. Coagulation studies are normal. Chemistry shows an elevated BUN and creatinine of 54 and 3.03 respectively. In the past, it looks like her baseline creatinine was about 1.5 but it may have gone up since then. BNP is 780. On previous admission here back in November, she had acute on chronic renal failure and was placed on diuretic therapies. She became more short of breath and her creatinine began to go up even more, and at that point I did transfer her to [facility]. She was discharged subsequently obviously and then sent back home where she actually went to [facility] again for aspiration pneumonia and congestive heart failure exacerbation. Anyhow, at time of examination today, the patient is alert and oriented. She is a bit tachypneic but not in any significant distress. PAST MEDICAL HISTORY: 1. Atrial fibrillation. 2. Hypertension. 3. Coronary artery disease. 4. Chronic obstructive pulmonary disease. 5. Congestive heart failure. 6. Chronic kidney disease with baseline creatinine in the past of 1.5 but I would imagine it is greater than that now. 7. Diastolic heart failure with an ejection fraction of 70%. 8. Mild dementia. 9. Gastroesophageal reflux disease. 10. Hyperlipidemia. 11. Obstructive sleep apnea. 12. Gout. PAST SURGICAL HISTORY: 1. Tonsillectomy. 2. PTCA with stents in the past. 3. Left total knee arthroplasty on 3 different occasions. CURRENT MEDICATIONS: Please see medication reconciliation record in the computer once they are verified. ALLERGIES: BETADINE, RADIOGRAPHIC DYES AND IODINE. FAMILY HISTORY: Reviewed and noncontributory to her current diagnosis. SOCIAL HISTORY: The patient is . She has 9 children and lives in [place]. She quit smoking in the distant past. Occasional alcohol usage. No illegal drugs. REVIEW OF SYSTEMS: CONSTITUTIONAL: No fever or chills. No recent weight loss or weight gain. HEENT: No headaches, vision changes, ear pain, nasal congestion or throat pain. RESPIRATORY: Positive for shortness of breath. No cough. No pleuritic chest pain. CARDIOVASCULAR: No chest pain. No palpitations but she does have peripheral edema. GASTROINTESTINAL: No nausea or vomiting, diarrhea, constipation or abdominal pain. GENITOURINARY: No dysuria, frequency or flank pain. ENDOCRINE: No polydipsia, polyuria or polyphagia. No heat or cold intolerance. MUSCULOSKELETAL: No joint pain, joint swelling or muscle cramps. SKIN: No rashes, lesions or wounds. NEUROLOGIC: No seizures, paresthesias or syncope. PHYSICAL EXAMINATION: VITAL SIGNS: Blood pressure 159/70, heart rate 56, respiratory rate 22, temperature 98.0, oxygen skin and subcutaneous tissue 94% on 4 liters via nasal cannula. GENERAL: Ms. Jang is a 89 year-old female who is in no active distress currently. CHEST: Lungs are diminished in the bases, otherwise clear to auscultation bilaterally. CARDIOVASCULAR: Regular rate and rhythm. Normal S1 and S2. ABDOMEN: Soft. Positive bowel sounds. Obese. EXTREMITIES: Lower extremities with 3+ pitting edema. Pulses are 2+. Capillary refill is less than 2 seconds. NEUROLOGIC: The patient is alert and oriented. LABORATORY: Labs and films are as discussed in the History of Present Illness. ASSESSMENT: 1. Acute exacerbation of congestive heart failure which is diastolic heart failure. 2. Chronic renal failure. 3. Leukocytosis. Cannot rule out pneumonia. 4. Hypertension. 5. Coronary artery disease with no evidence of acute coronary syndrome. 6. Chronic obstructive pulmonary disease with no evidence of acute exacerbation. 7. Anemia likely secondary to chronic renal failure. PLAN: At this time, the patient will be admitted to the Medical/Surgical Unit for diuresis. She has already received 40 mg of Lasix so I will put her on 40 mg twice a day. I discussed with her the plan regarding this and the possibility of her creatinine getting worse is always there. She understands this. Additionally she does have some leukocytosis. She has a recent diagnosis of aspiration pneumonia and I cannot rule out that the leukocytosis is secondary to continued pneumonia process, therefore I am going to go ahead and place her on some Zosyn. I am going to hold off on vancomycin due to the likelihood she does not have Methicillin resistant Staphylococcus aureus pneumonia in addition to the fact she has had no fever or chills that would potentially cause a worsening nephropathy as well. I will resume her home medications once they are placed in the computer. She is on p.o. anticoagulation for atrial fibrillation, so once that is placed in the computer that will serve as her deep venous thrombosis prophylaxis as well. I will place her on a proton pump inhibitor for GI ulcer prophylaxis. If her creatinine seems to worsen, I will probably contact Dr. Becerra regarding her admission here and see if he has any other recommendations. I did discuss with her whether or not she would want to be on dialysis and she states that if Dr. Becerra said she needed it then she would agree to that. #[id number] [facility]
[2018-12-20] MEDS ORDERED: NITROGLYCERIN 0.4 MG 25 EA TAB SL PRN (07:31)
[2018-12-20] MEDS ORDERED: traMADol HCL 50 MG TAB PO PRN (08:09)
[2018-12-20] MEDS ORDERED: PIPERACILLIN/TAZOBACTAM 3.375 GM VIAL IVPB ONE ×2 (08:42→19:12)
[2018-12-20] MEDS ORDERED: SODIUM CHLORIDE 0.9% 100ML 100 ML IVPB ONE ×2 (08:43→19:12)
[2018-12-20] MEDS: PANTOPRAZOLE SODIUM TAB 40 MG PO SCH (08:46)
[2018-12-20] MEDS: CLOPIDOGREL 75 MG TAB PO SCH (08:46)
[2018-12-20] MEDS: PIPERACILLIN/TAZOBACTAM 3.375 GM in SODIUM CHLORIDE 0.9% 100ML 100 ML IVPB SCH ×2 (08:46→20:03)
[2018-12-20] MEDS: FERROUS SULFATE 325 MG TAB PO SCH (08:46)
[2018-12-20] MEDS: cloNIDine HCL 0.1 MG TAB PO SCH ×2 (08:46→20:03)
[2018-12-20] MEDS: APIXABAN 5 MG TAB PO SCH ×2 (08:47→20:03)
[2018-12-20] MEDS: predniSONE 10 MG TAB PO SCH (08:47)
[2018-12-20] MEDS: amLODIPine BESYLATE 5 MG TAB PO SCH (08:47)
[2018-12-20] MEDS: AMIODARONE HCL 200 MG TAB PO SCH (08:47)
[2018-12-20] MEDS: LOSARTAN POTASSIUM 100 MG TAB PO SCH (08:47)
[2018-12-20] MEDS: IV SET AND CAP CHANGE INJ INJ SCH (08:47)
[2018-12-20] MEDS: LUBIPROSTONE 24 MCG CAP PO SCH ×2 (08:48→16:25)
[2018-12-20] MEDS: IPRATROPIUM/ALBUTEROL 3 ML VIAL NEB SCH ×4 (08:50→19:43)
[2018-12-20] MEDS: FUROSEMIDE INJ 40 MG/4 ML VIAL IV SCH ×2 (08:53→17:21)
[2018-12-20] MEDS ORDERED: NON-FORMULARY MEDICATION 1 EA MIS (Umeclidinium-Vilanterol [Anoro Ellipta 62.5-25 Mcg/Inh] INH SCH (09:00)
[2018-12-20] MEDS: IPRATROPIUM/ALBUTEROL 3 ML VIAL NEB PRN (10:36)
[2018-12-20] MEDS: NON-FORMULARY MEDICATION 1 EA MIS (Umeclidinium-Vilanterol [Anoro Ellipta 62.5-25 Mcg/Inh] INH SCH (12:25)
[2018-12-20] MEDS: METOPROLOL SUCCINATE XL 25 MG TAB PO SCH (20:03)
[2018-12-20] MEDS: ATORVASTATIN 10 MG TAB PO SCH (20:03)
[2018-12-20] MEDS: SODIUM CHLORIDE 0.9% (FLUSH) 10 ML SYG IV PRN (20:03)
[2018-12-20] MEDS: DONEPEZIL HCL 5 MG TAB PO SCH (20:03)
[2018-12-20] MEDS: MELATONIN 3 MG TAB PO SCH (20:03)
[2018-12-20] MEDS: ALLOPURINOL 300 MG TAB PO SCH (20:03)
[2018-12-21] MEDS: PANTOPRAZOLE SODIUM TAB 40 MG PO SCH (06:06)
[2018-12-21] MEDS ORDERED: SODIUM CHLORIDE 0.9% 100ML 100 ML IVPB ONE (06:52)
[2018-12-21] MEDS ORDERED: PIPERACILLIN/TAZOBACTAM 3.375 GM VIAL IVPB ONE (06:52)
[2018-12-21] MEDS: IPRATROPIUM/ALBUTEROL 3 ML VIAL NEB SCH ×4 (07:30→19:16)
[2018-12-21] MEDS: NON-FORMULARY MEDICATION 1 EA MIS (Umeclidinium-Vilanterol [Anoro Ellipta 62.5-25 Mcg/Inh] INH SCH (07:30)
--- NOTE | 2018-12-21 07:30 | RAD ---
EXAM DESCRIPTION: Chest,1 View CLINICAL HISTORY: 78 years Female, CHF COMPARISON: Previous study December 20, 2018 TECHNIQUE: AP portable chest. FINDINGS: Heart size is large with increased pulmonary vascularity. Extensive pulmonary edema in the perihilar and lower lobe regions right more than left. Findings are similar to previous study. No pulmonary mass or worrisome nodule. No pneumothorax or pleural effusion. Bones are unremarkable. IMPRESSION: Large heart with vascular congestion and pulmonary edema. Electronically signed by: Aston Machado MD 12/21/2018 7:28 AM PATHOLOGY LAB TECHNICIAN
[2018-12-21] MEDS: PIPERACILLIN/TAZOBACTAM 3.375 GM in SODIUM CHLORIDE 0.9% 100ML 100 ML IVPB SCH (07:45)
[2018-12-21] MEDS: SODIUM CHLORIDE 0.9% (FLUSH) 10 ML SYG IV PRN ×2 (07:46→20:28)
[2018-12-21] MEDS: LUBIPROSTONE 24 MCG CAP PO SCH ×2 (08:00→17:27)
[2018-12-21] MEDS: FERROUS SULFATE 325 MG TAB PO SCH (08:00)
[2018-12-21] MEDS: LOSARTAN POTASSIUM 100 MG TAB PO SCH (08:00)
[2018-12-21] MEDS: APIXABAN 5 MG TAB PO SCH ×2 (08:00→20:27)
[2018-12-21] MEDS: amLODIPine BESYLATE 5 MG TAB PO SCH (08:00)
[2018-12-21] MEDS: AMIODARONE HCL 200 MG TAB PO SCH (08:01)
[2018-12-21] MEDS: cloNIDine HCL 0.1 MG TAB PO SCH ×2 (08:01→20:27)
[2018-12-21] MEDS: FUROSEMIDE INJ 40 MG/4 ML VIAL IV SCH ×2 (08:01→17:27)
[2018-12-21] MEDS: CLOPIDOGREL 75 MG TAB PO SCH (08:01)
[2018-12-21] MEDS: predniSONE 10 MG TAB PO SCH (08:01)
--- NOTE | 2018-12-21 13:48 | PN ---
SUPERVISING PHYSICIAN: Adrien Cotton MD DATE: 12/21/18 SUBJECTIVE: The patient this morning was showing some desaturation while asleep and was placed on BiPAP. She was showing much better saturations on the BiPAP, but has requested since to be off of it. Therefore, she is maintaining O2 via simple mask. She has had no further complaints. OBJECTIVE: VITAL SIGNS: Temperature 97.4. Pulse 60. Blood pressure 152/91. Respirations 20. Saturation 91% on nasal cannula on 5 liters. I&Os show negative balance 1760 with 2140 in, 3900 out. Weight is stable at 107.1 kg. GENERAL: The patient is resting comfortably, appears to be in no acute distress on nasal cannula. She is alert. CHEST: Lungs are fairly clear throughout, just diminished towards the bases. HEART: Regular rate and rhythm. ABDOMEN: Soft, nontender. Positive bowel sounds. EXTREMITIES: Trace edema this morning bilaterally. LABORATORY: White count 6,600, hemoglobin 7.4, hematocrit 23.6, platelet count 123,000. Differential shows improving left shift. Chemistries show sodium 139, potassium 4.8, BUN 106, creatinine 3.06, serum osmolality 900, calcium 9.1. RADIOLOGY: Repeat chest x-ray this morning, single-view chest, per radiologic interpretation showed large heart with vascular congestion, pulmonary edema. ASSESSMENT: 1. Acute exacerbation of congestive heart failure which is diastolic heart failure. 2. Chronic renal failure. 3. Leukocytosis. Cannot rule out pneumonia. 4. Hypertension. 5. Coronary artery disease with no evidence of acute coronary syndrome. 6. Chronic obstructive pulmonary disease with no evidence of acute exacerbation. 7. Anemia likely secondary to chronic renal failure. PLAN: We will continue with Lasix after talking with Dr. Becerra today. Even though she is anemic, we will hold off on transfusion until we can dry her out a little bit more. We will plan to repeat labs in the morning. We will continue the Lasix, possibly increasing the dose later today. We will monitor I&Os closely. I have taken her off Zosyn given her kidney function. She remains on anticoagulation for her atrial fibrillation. I would anticipate a least another 24 to 48 hours hospitalization. Until we can discharge and transition to outpatient management, we will continue to monitor and treat as needed. #[id number] [facility]
[2018-12-21] MEDS: METOPROLOL SUCCINATE XL 25 MG TAB PO SCH (20:27)
[2018-12-21] MEDS: DONEPEZIL HCL 5 MG TAB PO SCH (20:27)
[2018-12-21] MEDS: ALLOPURINOL 300 MG TAB PO SCH (20:27)
[2018-12-21] MEDS: ATORVASTATIN 10 MG TAB PO SCH (20:28)
[2018-12-21] MEDS: MELATONIN 3 MG TAB PO SCH (20:28)
[2018-12-22] MEDS: PANTOPRAZOLE SODIUM TAB 40 MG PO SCH (05:52)
[2018-12-22] MEDS: NON-FORMULARY MEDICATION 1 EA MIS (Umeclidinium-Vilanterol [Anoro Ellipta 62.5-25 Mcg/Inh] INH SCH (08:15)
[2018-12-22] MEDS: IPRATROPIUM/ALBUTEROL 3 ML VIAL NEB SCH ×4 (08:15→20:00)
[2018-12-22] MEDS: FERROUS SULFATE 325 MG TAB PO SCH (08:26)
[2018-12-22] MEDS: LUBIPROSTONE 24 MCG CAP PO SCH ×2 (08:26→17:24)
[2018-12-22] MEDS: CLOPIDOGREL 75 MG TAB PO SCH (08:27)
[2018-12-22] MEDS: amLODIPine BESYLATE 5 MG TAB PO SCH (08:27)
[2018-12-22] MEDS: LOSARTAN POTASSIUM 100 MG TAB PO SCH (08:27)
[2018-12-22] MEDS: cloNIDine HCL 0.1 MG TAB PO SCH ×2 (08:27→20:33)
[2018-12-22] MEDS: APIXABAN 5 MG TAB PO SCH ×2 (08:27→20:34)
[2018-12-22] MEDS: AMIODARONE HCL 200 MG TAB PO SCH (08:27)
[2018-12-22] MEDS: FUROSEMIDE INJ 40 MG/4 ML VIAL IV SCH ×2 (08:28→18:03)
[2018-12-22] MEDS: predniSONE 10 MG TAB PO SCH (08:29)
[2018-12-22] MEDS ORDERED: ACETAMINOPHEN 325 MG TAB PO ONE (10:05)
[2018-12-22] MEDS ORDERED: diphenhydrAMINE HCL 50 MG/ML VIAL IV ONE (10:05)
[2018-12-22] MEDS ORDERED: SODIUM CHLORIDE 0.9% 500ML 500 ML IVS SCH (10:30)
[2018-12-22] MEDS ORDERED: BUMETANIDE TAB 2 MG TAB ONE (17:19)
[2018-12-22] MEDS ORDERED: BUMETANIDE 0.25 MG/ML VIAL IV ONE (18:00)
[2018-12-22] MEDS ORDERED: BUMETANIDE TAB 2 MG TAB PO ONE (18:01)
[2018-12-22] MEDS: MELATONIN 3 MG TAB PO SCH (20:32)
[2018-12-22] MEDS: METOPROLOL SUCCINATE XL 25 MG TAB PO SCH (20:33)
[2018-12-22] MEDS: ALLOPURINOL 300 MG TAB PO SCH (20:33)
[2018-12-22] MEDS: DONEPEZIL HCL 5 MG TAB PO SCH (20:33)
[2018-12-22] MEDS: ATORVASTATIN 10 MG TAB PO SCH (20:33)
--- NOTE | 2018-12-22 21:00 | PN ---
DATE: 12/22/18 SUPERVISING PHYSICIAN: Adrien Cotton M.D. SUBJECTIVE: The patient remains anemic. She says she continues to have improvement in her breathing through the week. I discussed with her that we will transfuse a unit of packed red blood cells today. She has had no fever. She has had no chest pains. No further complaints. OBJECTIVE: VITAL SIGNS: Temperature 97.9, pulse 62, blood pressure 148/71, respirations 18, satting 92% on 5 liters nasal cannula. GENERAL: The patient is resting comfortably. Appears to be in no acute distress. She is alert. CHEST: Lung sounds are diminished towards the bases. No obvious rhonchi, wheezing or rales. HEART: Regular rate and rhythm. ABDOMEN: Soft, obese but non-tender. Positive bowel sounds. EXTREMITIES: Today just show trace of edema bilaterally. No clubbing or cyanosis. NEUROLOGIC: She is alert and oriented times three. LABORATORY: White count remains within normal limits at 6,300, hemoglobin 7.2, hematocrit 22.5, platelet count 113,000. Chemistries show normal electrolytes. BUN 105, creatinine is up to 3.5. Serum osmolality 308. Preliminary urine culture shows insufficient growth or incubation. ASSESSMENT: 1. Chronic renal failure exacerbated by antibiotic to include Zosyn and hypovolemia requiring transfusion of 1 unit packed red blood cells. 2. Leukocytosis with no evidence of pneumonia with white count now at baseline levels. 3. Acute exacerbation of congestive heart failure with echocardiogram pending. 4. Hypertension. 5. Coronary artery disease with no evidence of acute coronary syndrome. 6. Chronic obstructive pulmonary disease with no evidence of acute exacerbation. 7. Anemia likely secondary to chronic renal failure. PLAN: After talking with Dr. Becerra today, will go ahead and transfuse 1 unit of packed red blood cells. After the unit is complete, will give Bumex 2 mg. She also continues on Lasix. If she continues to show good diuresis, I with anticipate that she might be able to discharge within the next 24 to 48 hours depending on how well she does overnight with a unit of packed red blood cells. The plan at this point, after talking with family members and the patient herself, the patient will move in with her daughter who lives in the [facility], but she will be unable to do so until at least . Until then will continue to monitor and treat as needed. #[id number] [facility]
[2018-12-23] MEDS: IPRATROPIUM/ALBUTEROL 3 ML VIAL NEB PRN (03:05)
[2018-12-23] MEDS: PANTOPRAZOLE SODIUM TAB 40 MG PO SCH (06:01)
--- NOTE | 2018-12-23 07:43 | RAD ---
EXAM: XR Chest, 2 Views CLINICAL HISTORY: CHF exacerbation TECHNIQUE: Frontal and lateral views of the chest. COMPARISON: 12/21/2018. FINDINGS: Limitations: None. Lungs: Unremarkable. No consolidation. Pleural space: Unremarkable. No pneumothorax. Heart: Unremarkable. No cardiomegaly. Mediastinum: Unremarkable. Bones/joints: Unremarkable. Vasculature: Persistent but improved vascular congestion. IMPRESSION: Persistent but improved vascular congestion. Electronically signed by: Macy Monk MD 12/23/2018 7:41 AM [facility]
[2018-12-23] MEDS: NON-FORMULARY MEDICATION 1 EA MIS (Umeclidinium-Vilanterol [Anoro Ellipta 62.5-25 Mcg/Inh] INH SCH (07:50)
[2018-12-23] MEDS: IPRATROPIUM/ALBUTEROL 3 ML VIAL NEB SCH ×4 (07:52→20:22)
[2018-12-23] MEDS: LUBIPROSTONE 24 MCG CAP PO SCH ×2 (08:19→16:39)
[2018-12-23] MEDS: AMIODARONE HCL 200 MG TAB PO SCH (08:20)
[2018-12-23] MEDS: cloNIDine HCL 0.1 MG TAB PO SCH ×2 (08:20→20:27)
[2018-12-23] MEDS: APIXABAN 5 MG TAB PO SCH ×2 (08:21→20:27)
[2018-12-23] MEDS: predniSONE 10 MG TAB PO SCH (08:21)
[2018-12-23] MEDS: amLODIPine BESYLATE 5 MG TAB PO SCH (08:21)
[2018-12-23] MEDS: LOSARTAN POTASSIUM 100 MG TAB PO SCH (08:21)
[2018-12-23] MEDS: CLOPIDOGREL 75 MG TAB PO SCH (08:21)
[2018-12-23] MEDS: FERROUS SULFATE 325 MG TAB PO SCH (08:37)
[2018-12-23] MEDS: IV SET AND CAP CHANGE INJ INJ SCH (08:40)
[2018-12-23] MEDS ORDERED: metOLazone 2.5 MG TAB PO ONE (09:17)
[2018-12-23] MEDS: FUROSEMIDE INJ 40 MG/4 ML VIAL IV SCH ×2 (09:19→17:19)
[2018-12-23] MEDS ORDERED: levoFLOXacin 250MG IV 50 ML IVPB ONE (13:28)
[2018-12-23] MEDS: levoFLOXacin 250MG IV 250 MG in PREMIX BAG 1 BAG IVPB SCH (13:38)
--- NOTE | 2018-12-23 14:50 | PN ---
SUPERVISING PHYSICIAN: Adrien Cotton MD DATE: 12/23/18 SUBJECTIVE: The patient got a unit of packed red blood cells yesterday. She had no complications. She received some Bumex after the unit. She has been afebrile. She has had no other complaints. She notes that her breathing is improved, but she does remain short of breath with exertion. OBJECTIVE: VITAL SIGNS: Temperature 89.1. Pulse 52. Blood pressure 133/76. Respirations 18. Saturation 94% on 5 liters nasal cannula. I&O shows positive balance of 45 with 7220 in, 1667 out. Weight is up a little bit to 108.5 kg. GENERAL: The patient is resting comfortably and appears to be in no acute distress. CHEST: Lung sounds diminished towards the bases, no obvious rhonchi or rales. HEART: Regular rate and rhythm. ABDOMEN: Obese, but soft and nontender. Positive bowel sounds. EXTREMITIES: No edema today. NEUROLOGIC: Alert and oriented times three. LABORATORY: Hemoglobin up to 7.9 and hematocrit 24.9 after a unit of packed red blood cells today. Chemistries show potassium is up a little bit today at 5.3 with BUN going up to 115. Creatinine is down to 3.49. Calcium 8.8. RADIOLOGY: Two-view chest x-ray shows persistent but improved vascular congestion. ASSESSMENT: 1. Chronic renal failure exacerbated by antibiotic to include Zosyn and hypovolemia requiring transfusion of 1 unit packed red blood cells and showing some persistent elevation of creatinine with some now mild elevation of her potassium. 2. Leukocytosis with no evidence of pneumonia, but notable urine culture showing a Citrobacter requiring initiation of antibiotics. 3. Acute exacerbation of congestive heart failure with echocardiogram pending. 4. Hypertension, stable. 5. Coronary artery disease with no evidence of acute coronary syndrome. 6. Chronic obstructive pulmonary disease without any signs of exacerbation. 7. Anemia due to chronic renal failure. PLAN: I did again talk to Dr. Becerra about the patient's renal function and potassium. He noted the potassium was still borderline and he would not start her on any dialysis. We are going to try some Zaroxolyn along with continued IV Lasix. Given that the urine culture came back with Citrobacter that was resistant to cephalosporins, but sensitive to Levaquin, we will start her on Levaquin renally dosed at 250 mg q.daily for at least 3 days. We are going to repeat a urine today just to make sure she is improving. I anticipate hopefully to be able to discharge tomorrow depending on repeat of her laboratory studies. Her plan at this point is to move in with her daughter in the [facility] area. I did discuss at length with her that she needs to continue to followup with Dr. 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 Cotton, until her care could be fully transferred. Until the patient can transition to outpatient management, we will continue to monitor and treat as needed. #[id number] [facility]
[2018-12-23] MEDS: DONEPEZIL HCL 5 MG TAB PO SCH (20:26)
[2018-12-23] MEDS: MELATONIN 3 MG TAB PO SCH (20:29)
[2018-12-23] MEDS: ATORVASTATIN 10 MG TAB PO SCH (20:29)
[2018-12-23] MEDS: METOPROLOL SUCCINATE XL 25 MG TAB PO SCH (20:29)
[2018-12-23] MEDS: ALLOPURINOL 300 MG TAB PO SCH (20:30)
[2018-12-24] MEDS: PANTOPRAZOLE SODIUM TAB 40 MG PO SCH (06:22)
[2018-12-24] MEDS: amLODIPine BESYLATE 5 MG TAB PO SCH (08:55)
[2018-12-24] MEDS: cloNIDine HCL 0.1 MG TAB PO SCH ×2 (08:55→21:15)
[2018-12-24] MEDS: AMIODARONE HCL 200 MG TAB PO SCH (08:55)
[2018-12-24] MEDS: predniSONE 10 MG TAB PO SCH (08:55)
[2018-12-24] MEDS: FERROUS SULFATE 325 MG TAB PO SCH (08:55)
[2018-12-24] MEDS: CLOPIDOGREL 75 MG TAB PO SCH (08:55)
[2018-12-24] MEDS: LOSARTAN POTASSIUM 100 MG TAB PO SCH (08:56)
[2018-12-24] MEDS: APIXABAN 5 MG TAB PO SCH ×2 (08:56→21:16)
[2018-12-24] MEDS: FUROSEMIDE INJ 40 MG/4 ML VIAL IV SCH ×2 (08:57→09:05)
[2018-12-24] MEDS: LUBIPROSTONE 24 MCG CAP PO SCH ×2 (08:57→17:23)
[2018-12-24] MEDS: NON-FORMULARY MEDICATION 1 EA MIS (Umeclidinium-Vilanterol [Anoro Ellipta 62.5-25 Mcg/Inh] INH SCH (09:01)
[2018-12-24] MEDS: IPRATROPIUM/ALBUTEROL 3 ML VIAL NEB SCH ×4 (09:01→20:12)
[2018-12-24] MEDS: FUROSEMIDE 40 MG TAB PO SCH (11:26)
[2018-12-24] MEDS ORDERED: levoFLOXacin 250MG IV 50 ML IVPB ONE (11:28)
[2018-12-24] MEDS: levoFLOXacin 250MG IV 250 MG in PREMIX BAG 1 BAG IVPB SCH (11:29)
--- NOTE | 2018-12-24 20:52 | PN ---
DATE: 12/24/18 SUPERVISING PHYSICIAN: Adrien Cotton M.D. SUBJECTIVE: The patient is sitting up in bed. She complains of weakness but she is feeling some better. We discussed her discharge and she will most likely be discharged tomorrow to go live with her sister in the [facility]. Otherwise no complaints of shortness of breath, nausea or vomiting. OBJECTIVE: VITAL SIGNS: Temperature 97.5, heart rate 48, blood pressure 138/64, respiratory rate 20, O2 saturation 93% on 3 liters nasal cannula. RESPIRATORY: Diminished breath sounds throughout. CARDIAC: Regular rate and rhythm. At time she is slightly bradycardic. GASTROINTESTINAL: Abdomen is soft, nondistended, non-tender. Bowel sounds are positive. NEUROLOGIC: She is awake, alert and oriented times three. LABORATORY: Hemoglobin is 8.2, hematocrit 25.7. Sodium 133, potassium 5, chloride 99, carbon dioxide 24. BNP is 415. Urine culture is back and shows Citrobacter braakii. It is sensitive to Levaquin. All other labs and films have been reviewed via the EMR. ASSESSMENT: 1. Chronic renal failure exacerbated by antibiotic to include Zosyn and hypovolemia requiring transfusion of 1 unit packed red blood cells and showing some persistent elevation of creatinine with some now mild elevation of her potassium. 2. Leukocytosis with no evidence of pneumonia, but notable urine culture showing a Citrobacter requiring initiation of antibiotics. 3. Acute exacerbation of congestive heart failure with echocardiogram pending. 4. Hypertension, stable. 5. Coronary artery disease with no evidence of acute coronary syndrome. 6. Chronic obstructive pulmonary disease without any signs of exacerbation. 7. Anemia due to chronic renal failure. PLAN: We will continue present supportive care. She has a ride to the [facility] tomorrow. I will check her H&H in the morning as well as her kidney function. Will continue to monitor closely and follow as needed. #[id number] [facility]
[2018-12-24] MEDS: MELATONIN 3 MG TAB PO SCH (21:15)
[2018-12-24] MEDS: DONEPEZIL HCL 5 MG TAB PO SCH (21:16)
[2018-12-24] MEDS: ATORVASTATIN 10 MG TAB PO SCH (21:16)
[2018-12-24] MEDS: ALLOPURINOL 300 MG TAB PO SCH (21:16)
[2018-12-24] MEDS: METOPROLOL SUCCINATE XL 25 MG TAB PO SCH (21:16)
[2018-12-25] MEDS: IPRATROPIUM/ALBUTEROL 3 ML VIAL NEB PRN (03:18)
[2018-12-25] MEDS: PANTOPRAZOLE SODIUM TAB 40 MG PO SCH (06:06)
[2018-12-25] MEDS: LUBIPROSTONE 24 MCG CAP PO SCH (07:33)
[2018-12-25] MEDS: FERROUS SULFATE 325 MG TAB PO SCH (07:33)
[2018-12-25 07:52] VITALS: O2SAT 93
[2018-12-25] MEDS: IPRATROPIUM/ALBUTEROL 3 ML VIAL NEB SCH (07:53)
[2018-12-25] MEDS: amLODIPine BESYLATE 5 MG TAB PO SCH (09:18)
[2018-12-25] MEDS: APIXABAN 5 MG TAB PO SCH (09:18)
[2018-12-25] MEDS: FUROSEMIDE 40 MG TAB PO SCH (09:18)
[2018-12-25] MEDS: AMIODARONE HCL 200 MG TAB PO SCH (09:18)
[2018-12-25] MEDS: CLOPIDOGREL 75 MG TAB PO SCH (09:18)
[2018-12-25] MEDS: predniSONE 10 MG TAB PO SCH (09:18)
[2018-12-25] MEDS: LOSARTAN POTASSIUM 100 MG TAB PO SCH (09:19)
[2018-12-25] MEDS: cloNIDine HCL 0.1 MG TAB PO SCH (09:20)
[2018-12-25] MEDS: NON-FORMULARY MEDICATION 1 EA MIS (Umeclidinium-Vilanterol [Anoro Ellipta 62.5-25 Mcg/Inh] INH SCH (11:05)
[2018-12-25 11:38] VITALS: BP 135/65; TEMP 98.2
--- NOTE | 2018-12-25 13:48 | DS ---
SUPERVISING PHYSICIAN: Adrien Cotton MD DISCHARGE DIAGNOSIS: 1. Chronic renal failure exacerbated by antibiotic to include Zosyn and hypovolemia requiring transfusion of 1 unit packed red blood cells, continues to show some persistent elevation of creatinine. 2. Hyperkalemia secondary to chronic renal failure, now resolved. 3. Leukocytosis with no evidence of pneumonia, but notable urine culture showing a Citrobacter requiring initiation of antibiotics. 4. Acute exacerbation of congestive heart failure with echocardiogram completed. Her echocardiogram is not available for review at this time. 5. Hypertension, stable. 6. Coronary artery disease with no evidence of acute coronary syndrome. 7. Chronic obstructive pulmonary disease without signs of exacerbation. 8. Anemia due to chronic renal failure requiring transfusion of 1 units of packed red blood cells. HISTORY OF PRESENT ILLNESS: This is a 78-year-old female with multiple chronic medical conditions who came to the Emergency Room via EMS due to shortness of breath. She lives at [facility] and was recently discharged from [facility] for congestive heart failure exacerbation. After discharge to the long-term, she was inadvertently not placed on diuretic therapy. They also did not continue her nebulizers. Her O2 saturations when EMS arrived were in the 80s on 2 liters via nasal cannula. Her O2 saturations did go up after treatment as well as oxygen. In the Emergency Room, she was seen and her chest x-ray showed pulmonary vascular congestion consistent with congestive heart failure exacerbation. Her labs were done as well and showed an elevated white count of 12.3 with a left shift of 84.7. Hemoglobin is 9.0, platelet count 166. Coagulation studies are normal. Chemistry shows an elevated BUN and creatinine of 54 and 3.03 respectively. In the past, her baseline creatinine was 1.5, but has gone up since then. BNP was 780. On previous admission here back in November, she had acute on chronic renal failure and was placed on diuretic therapies. She became more short of breath and her creatinine began to go up even more. At that point, she was transferred to [facility]. She was subsequently discharged back to [facility]. She again went back to [facility] for aspiration pneumonia and congestive heart failure exacerbation. She was admitted to the hospital. She was alert and oriented, slightly tachypneic, but in no significant distress. HOSPITAL COURSE: The patient was given diuretics and restarted on her Lasix therapy. She was also given Zosyn and her home medications were restarted. She had a proton pump inhibitor for ulcer prophylaxis. She is on Eliquis which is sufficient for her DVT prophylaxis. It was felt at some point she may need to have dialysis. Dr. Becerra was consulted via phone. He thought we could continue with the aggressive Lasix therapy and recommended she be taken off Zosyn due to her kidney function. Her hemoglobin did drop to 7.2 and 1 unit of packed red blood cells was given. Her symptoms improved with diuretics as well as the administration of blood products. Discharge planning was discussed with her and she did not want to go back to [facility]. Arrangements were made for the patient to go live with her daughter in the [facility]. After 1 unit of packed red blood cells, her hemoglobin went up to 7.9. Dr. Becerra was again consulted and he felt she could hold off on dialysis at this time. Her urine culture came back with Citrobacter and was resistant to cephalosporins, so she was tried on a renal dose of Levaquin. It was discussed with the patient and her family that she would need to transition to a renal physician in the [facility] area and that Dr. Becerra's office would assist with that. Today, the patient was stabilized and her son will be taking her to the [facility] and she will live with her daughter. She is to followup with Dr. Cotton, her primary care physician, and Dr. Becerra for transition of care to that area. LABORATORY: WBC started at 12,300 and normalized to 6,300. Initially, her hemoglobin and hematocrit were 9.0 and 29.6 and got as low as 7.2 and 22.5 and stabilized to 8.2 and 25.7. She continues to have a left shift on her differential at 85.5% neutrophils. Electrolytes have been basically within normal limits. Her creatinine started at 3.03 and went up as high as 3.5. It is now 3.27. Her BUN is 113. Her initial BNP was 780 and yesterday was 415. Urine culture showed Citrobacter. Her followup chest x-ray showed persistent but improved vascular congestion. DISCHARGE PLAN: The patient will be discharged to her daughter's house in the [facility]. She is to followup with Dr. Cotton, her primary care physician, as well as Dr. Becerra, her carpenter inspector, for transition of care to a primary care physician and carpenter inspector in the [facility] area. Her routine home medications have been restarted. Her nebulizer treatments have been continued as well as the addition of Lasix 40 mg daily. She has completed her Levaquin treatment. She is to return to the hospital or followup with her primary care physician for any problems or complications. DISCHARGE MEDICATIONS: 1. Donepezil. 2. Allopurinol. 3. Albuterol sulfate nebulizers. 4. Acetaminophen. 5. Tramadol. 6. Protonix. 7. Prednisone. 8. Metoprolol. 9. Melatonin. 10. Lubiprostone. 11. Hydralazine. 12. Ferrous sulfate. 13. Eliquis. 14. Lipitor. 15. Plavix. 16. Clonidine. 17. Benicar. 18. Anoro Ellipta. 19. Aspirin. 20. Amlodipine. 21. Amiodarone. 22. Furosemide. #[id number] [facility]
== END 2018-12-25 10:00 | disposition home or self-care (01) | DRG 291 ==
LOC: ER 04:03 → MS 06:10 → OBSVTOIN 06:10
PROVIDERS: ADMIT Nurse Practitioner; ATTEND Nurse Practitioner Acute Care
PROC: 30233N1 Transfusion of Nonautologous Red Blood Cells into Peripheral Vein, Percutaneous Approach (ICD-10-PCS; principal; 2018-12-22)
DX: I13.0 Hypertensive heart and chronic kidney disease with heart failure and stage 1 through stage 4 chronic kidney disease, or unspecified chronic kidney disease (principal); I50.33 Acute on chronic diastolic (congestive) heart failure; Z16.19 Resistance to other specified beta lactam antibiotics; N18.9 Chronic kidney disease, unspecified; E86.1 Hypovolemia; E87.5 Hyperkalemia; I25.10 Atherosclerotic heart disease of native coronary artery without angina pectoris; J44.9 Chronic obstructive pulmonary disease, unspecified; D63.1 Anemia in chronic kidney disease; T50.1X6A Underdosing of loop [high-ceiling] diuretics, initial encounter; Z91.138 Patient's unintentional underdosing of medication regimen for other reason; Y92.129 Unspecified place in nursing home as the place of occurrence of the external cause; B96.89 Other specified bacterial agents as the cause of diseases classified elsewhere; I48.91 Unspecified atrial fibrillation; F03.90 Unspecified dementia, unspecified severity, without behavioral disturbance, psychotic disturbance, mood disturbance, and anxiety; K21.9 Gastro-esophageal reflux disease without esophagitis; E78.5 Hyperlipidemia, unspecified; G47.33 Obstructive sleep apnea (adult) (pediatric); M10.9 Gout, unspecified; E66.9 Obesity, unspecified; Z66 Do not resuscitate; Z95.5 Presence of coronary angioplasty implant and graft; Z96.652 Presence of left artificial knee joint; Z88.3 Allergy status to other anti-infective agents; Z91.041 Radiographic dye allergy status; Z91.048 Other nonmedicinal substance allergy status; Z87.891 Personal history of nicotine dependence; Z79.01 Long term (current) use of anticoagulants; Z79.891 Long term (current) use of opiate analgesic; Z79.82 Long term (current) use of aspirin; Z79.02 Long term (current) use of antithrombotics/antiplatelets; Z79.52 Long term (current) use of systemic steroids; Z79.899 Other long term (current) drug therapy; Z68.38 Body mass index [BMI] 38.0-38.9, adult